=== PATIENT | male | born 1935 | race Hispanic/Latino ===

== ENCOUNTER 2016-07-01 12:34 | Outpatient (CLI) | payer BC, MEDICARE ==
[2016-07-01] MEDS ORDERED: NACL ONE (13:13)
--- NOTE | 2016-07-01 14:29 | Cat Scan Report ---
CTA CHEST INDICATION: Hypertension, shortness of breath. COMPARISON: None similar. FINDINGS: Chest CTA performed following intravenous administration of 100 cc of Omnipaque 350. Rotational MIP's also obtained. Top normal heart size. No pericardial effusion. Streak artifact from left upper anterior chest wall pacemaker and dual-chamber leads. Aortic and coronary atherosclerotic calcifications. No aortic aneurysm or dissection. No suspicious pulmonary arterial filling defects. No size significant adenopathy. Patent central airway. Normal thyroid. Mild underlying emphysematous changes, most involving the upper lobes with largest 2.1 cm peripheral right upper lobe bulla, axial image 59, series 2. Small bibasilar pleural effusions, right greater than left with maximum AP thickness of 1.9 cm, axial image 206. Mild underlying atelectasis. Slight right middle lobe and lingular atelectasis or scarring as well. Imaged upper abdomen demonstrates no acute solid organ abnormality. Questionable subtle hepatic cirrhotic changes and slight splenomegaly. Mild nonspecific bilateral perinephric stranding with right kidney possibly slightly atrophic. 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 CONCLUSION: 1. Small bibasilar pleural effusions and atelectasis without CT evidence of pulmonary embolism in this patient with underlying COPD. 2. Few other incidental findings, including subtle cirrhosis and slight splenomegaly questioned. Please correlate. Thank you for the opportunity to participate in this patient's care.
== END 2016-07-01 12:35 | disposition home or self-care (01) ==
LOC: CT 12:34
PROVIDERS: ATTEND Internal Medicine Cardiovascular Disease
DX: I10 Essential (primary) hypertension (principal); J90 Pleural effusion, not elsewhere classified; J98.11 Atelectasis; I70.0 Atherosclerosis of aorta; I25.10 Atherosclerotic heart disease of native coronary artery without angina pectoris; M25.78 Osteophyte, vertebrae; M47.894 Other spondylosis, thoracic region; K74.60 Unspecified cirrhosis of liver; Z95.0 Presence of cardiac pacemaker
CPT/HCPCS: 36415; 71275; 82565; 84520; Q9967

== ENCOUNTER 2016-09-30 05:54 | Day surgery (SDC) | payer BC, MEDICARE ==
[2016-09-30] MEDS ORDERED: NACL 0.9% 500 ML 500 ML IV SCH (07:00)
[2016-09-30 07:08] LABS: BUN/Creatinine Ratio 27.14; Calcium 9.9 mg/dL (8.4-10.2); Chloride 98.9 mmol/L (98-107); INR 1.23 (0.87-1.13); Potassium 5.4 mmol/L (3.6-5.0)
[2016-09-30] MEDS ORDERED: HEPARIN 10,000 UNITS/10 ML ONE (07:34)
[2016-09-30] MEDS ORDERED: HEPARIN/NS 5000 UNIT/500ML(CATH LAB) 1,000 ML IR ONE (07:34)
[2016-09-30] MEDS ORDERED: XYLOCAINE 2% INFILTRATI ONE (07:35)
[2016-09-30] MEDS ORDERED: VERSED ONE (07:35)
[2016-09-30] MEDS ORDERED: SUBLIMAZE ONE (07:35)
[2016-09-30] MEDS ORDERED: CALAN ONE (07:35)
[2016-09-30 07:36] LABS: Basophils % (Auto) 0.7 % (0.0-1.8); Eosinophils % (Auto) 3.1 % (0.0-4.3); Hematocrit 28.3 % (35.5-45.6); Hemoglobin 9.5 gm/dl (11.8-15.2); Mean Corpuscular HGB Conc 34 % (32-34); Mean Corpuscular Hemoglobin 33 pg (28-32); Mean Corpuscular Volume 97 fl (84-94); Platelet Count 143 K/mm3 (140-440); Red Blood Count 2.92 M/mm3 (3.65-5.03); White Blood Count 5.1 K/mm3 (4.5-11.0)
[2016-09-30] MEDS ORDERED: NITROGLYCERIN SYRINGE 3 ML ONE (07:36)
--- NOTE | 2016-09-30 11:16 | Discharge Summary ---
Short Stay Discharge Plan Diet: low fat, low cholesterol, low salt Special Instructions: no heavy lifting, other (POST CARDIAC CATH INSTRUCTIONS.) Follow up with: TREASURE DONG MD [Primary Care Provider] - 7 Days SHANNAN HOWARD MD [Staff Physician] - 7 Days
[2016-09-30 12:07] VITALS: BP 133/67
--- NOTE | 2016-10-07 07:14 | Cardiac Catherization Report ---
PROCEDURE: Left heart catheterization, ventriculography and coronary angiography of the right radial artery using 5-Guyanese catheters, including a pigtail, 3.5 left Kera and AR1. COMPLICATIONS: None. ESTIMATED BLOOD LOSS: 10-20 mL. TISSUE SAMPLES: None. SEDATION: Intravenous Versed and fentanyl. PREPROCEDURE DIAGNOSES: Chest pain and shortness of breath, suspicious for angina. POSTPROCEDURE DIAGNOSIS: Moderate coronary artery disease. HEMODYNAMICS: Central aortic pressure of 104/56. Left ventricular pressure 102/28. ANGIOGRAPHIC RESULTS: Left ventricle: Left ventriculogram reveals mild left ventricular enlargement with normal systolic function. An estimation of the ejection fraction is 55%. Right coronary artery: This is a dominant vessel and there is a 20% stenosis in mid portion. Left coronary artery: The left main contains a 30% stenosis. The circumflex contains a 50% mid stenosis. The first obtuse marginal branch contains a 50% stenosis. The mid LAD contains a 50% stenosis. The vessel is decreased to irregular and heavily calcified. The vessel is diffusely narrowed. FINAL IMPRESSION: Chest discomfort and shortness of breath suggest of angina. There is moderate coronary artery disease with normal left ventricular function. The vessels are diffusely narrowed and calcified. PLAN: Aggressive medical therapy, CAD risk factor modification, office followup within 7 days. Consider other organ systems for possible etiology of this patient's chest pain as well. JOB# [id number] NAT/NTS
== END 2016-09-30 12:30 | disposition home or self-care (01) ==
LOC: OPU 05:54
PROVIDERS: ATTEND Internal Medicine
DX: I25.10 Atherosclerotic heart disease of native coronary artery without angina pectoris (principal); E78.5 Hyperlipidemia, unspecified; D64.9 Anemia, unspecified; I10 Essential (primary) hypertension; Z88.0 Allergy status to penicillin; Z96.643 Presence of artificial hip joint, bilateral; Z79.899 Other long term (current) drug therapy; Z79.82 Long term (current) use of aspirin; Z87.39 Personal history of other diseases of the musculoskeletal system and connective tissue; Z98.890 Other specified postprocedural states; Z87.891 Personal history of nicotine dependence; Z82.49 Family history of ischemic heart disease and other diseases of the circulatory system; Z95.0 Presence of cardiac pacemaker
CPT/HCPCS: 36415; 80048; 85025; 85610; 85730; 93005; 93010; 93458; C1887; C1894; J1644; J2250; J3010; J7040; Q9967

== ENCOUNTER 2018-03-27 12:27 | Inpatient (IN) | payer BC, MEDICARE ==
[2018-03-27 13:38] LABS: Basophils # (Auto) 0.1 K/mm3 (0.0-0.1); Basophils % (Auto) 1.2 % (0.0-1.8); Eosinophils % (Auto) 0.6 % (0.0-4.3); Hematocrit 29.8 % (35.5-45.6); Hemoglobin 10.2 gm/dl (11.8-15.2); Lymphocytes % (Auto) 12.4 % (13.4-35.0); Mean Corpuscular HGB Conc 34 % (32-34); Mean Corpuscular Volume 102 fl (84-94); Monocytes # (Auto) 0.9 K/mm3 (0.0-0.8); Monocytes % (Auto) 11.2 % (0.0-7.3); Platelet Count 170 K/mm3 (140-440); Red Blood Count 2.93 M/mm3 (3.65-5.03)
--- NOTE | 2018-03-27 13:54 | XRay Report ---
ROUTINE CHEST, TWO VIEWS: HISTORY: Short of breath. A moderate to large right pleural effusion compresses the right middle and lower lobes. No left pleural effusion. The right upper lobe and left lung are well-aerated. Heart size and pulmonary vascularity are within normal limits. 2-lead pacemaker device is in position. IMPRESSION: Moderate to large right pleural effusion.
--- NOTE | 2018-03-27 14:02 | Emergency Department Report ---
ED Shortness of Breath HPI - General Chief Complaint: Dyspnea/Respdistress Stated Complaint: SOB Time Seen by Provider: 03/27/18 13:49 Source: patient Mode of arrival: Wheelchair Limitations: No Limitations - History of Present Illness Initial Comments: is an 83-year-old male who comes to the ER today with shortness of breath. He saw his family care doctor Dr. Patrick in [place] today and she sent him here to the hospital. Patient states that he has had this shortness of breath for 1-2 weeks has progressively been getting worse. It is worse with activity and when he is lying down. It is associated with some chest pain. He also has swelling of bilateral lower extremities right greater than left. Patient's lips are dusky with activity and sat is 86% when walking. Patient's heart rate is in the 60s. He is on Coreg. Patient also reports recent diarrhea. He states that it has gotten better. It started last week. He stat es that he had an x-ray of his abdomen done at his primary care's office. Patient is not febrile. Patient has chronic kidney disease with a baseline creatinine of 1.3. Patient does make urine and he states he urinates quite frequently. Patient has acute and chronic anemia. He received Procrit last week. 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 It is being medically managed by Dr. cao. His last EF in the EMR was 55% in 2017. 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 It is a [place] scientific device. She has a history of COPD/emphysema. He quit smoking in 1969. Patient is not on home oxygen. Other significant medical history includes hypertension, hyperlipidemia. Patient denies any history of cancer. Past surgical history is positive for 4 hip surgeries. He has also had a back surgery. Note that during one of patient's hip surgeries he had MRSA infections. Patient is compliant with his home medication regimen which includes Norvasc, aspirin, Coreg, Lasix, Prinivil, albuterol, trandolapril Complaint: shortness of breath, chest pain -: Gradual, week(s) (2) Severity: moderate Quality: dull Consistency: intermittent Improves With: rest, upright position Worsens With: lying flat, exertion Known History Of: COPD, congestive heart failure Associated Symptoms: chest pain, cough, orhopnia, lower abdominal swelling Treatments Prior to Arrival: none - Related Data Home Oxygen Therapy: No Home Medications Medication Instructions Recorded Confirmed Last Taken Amlodipine Besylate 5 mg PO QDAY 09/30/16 09/30/16 09/30/16 04:30 Aspirin [Adult Low Dose Aspirin EC] 81 mg PO QDAY 09/30/16 09/30/16 1 Week Ago ~09/23/16 Carvedilol 6.25 mg PO BID 09/30/16 09/30/16 09/30/16 04:30 Folic Acid [Folvite] 1 tab PO QDAY 09/30/16 09/30/16 09/29/16 Lovastatin Tab [Mevacor Tab] 40 mg PO HS 09/30/16 09/30/16 09/29/16 Multivit-Min/FA/Lycopen/Lutein 1 each PO QDAY 09/30/16 09/30/16 09/29/16 [Adults 50+ Multivitamin Tablet] [place]-3 Krill Oil 300 mg Sfgl 1 tab PO QDAY 09/30/16 09/30/16 09/29/16 Trandolapril 2 mg PO QDAY 09/30/16 09/30/16 09/30/16 04:30 Ubidecarenone [Coq-10] 300 mg PO QDAY 09/30/16 09/30/16 09/29/16 Vitamin B Complex [B Complex] 1 each PO DAILY 09/30/16 09/30/16 09/29/16 l-Arginine 1 cap PO QDAY 09/30/16 09/30/16 09/29/16 Allergies Allergy/AdvReac Type Severity Reaction Status Date / Time Penicillins Allergy Unknown Unknown Verified 09/30/16 06:20 ED Review of Systems ROS: Stated complaint: PNEUMONIA Other details as noted in HPI Comment: All other systems reviewed and negative Constitutional: denies: chills, fever Eyes: denies: eye pain ENT: denies: ear pain, throat pain Respiratory: see HPI, cough, orthopnea, shortness of breath, SOB with exertion, SOB at rest, wheezing (especially in a.m.) Cardiovascular: as per HPI, chest pain, dyspnea on exertion, orthopnea, edema (right worse than left), paroxysmal nocturnal dyspnea. denies: palpitations, syncope Endocrine: see HPI, unexplained weight gain. denies: excessive sweating, flushing, intolerance to cold, intolerance to heat Gastrointestinal: abdominal pain, diarrhea. denies: nausea (recent diarrhea), vomiting, constipation, hematemesis, melena, hematochezia Genitourinary: as per HPI, frequency (Lasix). denies: urgency, dysuria Musculoskeletal: denies: back pain Skin: denies: rash Neurological: denies: headache, weakness Psychiatric: denies: anxiety, depression Hematological/Lymphatic: denies: easy bleeding ED Past Medical Hx - Past Medical History Previous Medical History?: Yes Hx Hypertension: Yes (5yrs ago) Hx CVA: No Hx Heart Attack/AMI: Yes (stent) Hx Congestive Heart Failure: Yes (PPM TIFFANIE SCIENT) Hx Diabetes: No Hx Deep Vein Thrombosis: No Hx Pulmonary Embolism: No Hx GERD: No Hx Liver Disease: No Hx Renal Disease: Yes (ckd) Hx of Cancer: No Hx Sickle Cell Disease: No Hx Arthritis: No Hx Headaches / Migraines: No Hx Seizures: No Hx Kidney Stones: No Hx Psychiatric Treatment: No Hx Asthma: No Hx COPD: Yes (emphysema) Hx Tuberculosis: No Hx Dementia: No Hx HIV: No Additional medical history: a/c anemia - Surgical History Past Surgical History?: Yes Hx Coronary Stent: Yes (x1) Additional Surgical History: 4 hip surgeries. back surgery - Family History Family history: no significant - Social History Smoking Status: Former Smoker (quit 1970) Substance Use Type: None - Medications Home Medications: Home Medications Medication Instructions Recorded Confirmed Last Taken Type Amlodipine Besylate 5 mg PO QDAY 09/30/16 09/30/16 09/30/16 04:30 History Aspirin [Adult Low Dose Aspirin EC] 81 mg PO QDAY 09/30/16 09/30/16 1 Week Ago History ~09/23/16 Carvedilol 6.25 mg PO BID 09/30/16 09/30/16 09/30/16 04:30 History Folic Acid [Folvite] 1 tab PO QDAY 09/30/16 09/30/16 09/29/16 History Lovastatin Tab [Mevacor Tab] 40 mg PO HS 09/30/16 09/30/16 09/29/16 History Multivit-Min/FA/Lycopen/Lutein 1 each PO QDAY 09/30/16 09/30/16 09/29/16 History [Adults 50+ Multivitamin Tablet] [place]-3 Krill Oil 300 mg Sfgl 1 tab PO QDAY 09/30/16 09/30/16 09/29/16 History Trandolapril 2 mg PO QDAY 09/30/16 09/30/16 09/30/16 04:30 History Ubidecarenone [Coq-10] 300 mg PO QDAY 09/30/16 09/30/16 09/29/16 History Vitamin B Complex [B Complex] 1 each PO DAILY 09/30/16 09/30/16 09/29/16 History l-Arginine 1 cap PO QDAY 09/30/16 09/30/16 09/29/16 History ED Physical Exam - General Limitations: No Limitations General appearance: alert - Head Head exam: Present: atraumatic - Eye Eye exam: Present: PERRL, EOMI Pupils: Present: normal accommodation - ENT ENT exam: Present: mucous membranes moist - Neck Neck exam: Present: normal inspection - Respiratory Respiratory exam: Present: normal lung sounds bilaterally, rales, chest wall tenderness, other (INC WOB IRAJ W ACTIVITY; DIMINISHED RLL/RML). Absent: wheezes, rhonchi, stridor, accessory muscle use, decreased breath sounds, prolonged expiratory - Cardiovascular Cardiovascular Exam: Present: regular rate, normal rhythm, normal heart sounds, S3, S4, other (BLE EDEMA R> L) - GI/Abdominal GI/Abdominal exam: Present: soft, normal bowel sounds - Rectal Rectal exam: Present: deferred - Extremities Exam Extremities exam: Present: normal inspection - Back Exam Back exam: Present: normal inspection - Neurological Exam Neurological exam: Present: alert, oriented X3 - Psychiatric Psychiatric exam: Present: normal affect, normal mood - Skin Skin exam: Present: warm, dry, intact, other (DUSKY LIPS) ED Course Vital Signs 03/27/18 03/27/18 03/27/18 12:37 13:34 13:54 Temperature 98.9 F Pulse Rate 60 60 Respiratory 18 26 H 24 Rate Blood Pressure 119/48 Blood Pressure 138/89 [Left] O2 Sat by Pulse 92 86 94 Oximetry 03/27/18 13:55 Temperature Pulse Rate Respiratory 24 Rate Blood Pressure Blood Pressure [Left] O2 Sat by Pulse 94 Oximetry - Reevaluation(s) Reevaluation #1: 03/27/18 14:[address] MADRID FOR ADMISSION ED Medical Decision Making - Lab Data Result diagrams: 03/27/18 13:29 - EKG Data -: EKG Interpreted by Me - Radiology Data Radiology results: report reviewed, image reviewed R PLEURAL EFFUSION - Medical Decision Making RO ACS TROP P CATH 2017- TVD / EF 55 --MEDICAL MANAGEMENT COPD NO HOME O2 ABG P A/C HF LARGE R PLEURAL EFFUSION- DENIES WEIGHT LOSS; DENIES HISTORY CANCER BNP P A/C KD BASELINE CR 1.30 A/C ANEMIA PROCRIT LAST WEEK FOLLOWS WITH - [facility] PCP [facility] PULMONOLOGY GASTROENTEROLOGY UROLOGY HOME MEDS NORVASC ASA COREG TRANDOLAPRIL LASIX BREO ALBUTEROL PLAN 1. ABG PENDING 2. EKG PENDING 3. TROPONIN; AND ADDITIONAL LABS PENDING 4 XRAY NOTED WITH LARGE R PL EFFUSION- WILL NEED DIURESIS 5. REPORT TO DR MADRID FOR ADMISSION - Differential Diagnosis RO ACS; ACUTE DECOMPENSATED HR; COPD AE Critical Care Time: Yes Critical care time in (mins) excluding proc time.: 30 Critical care attestation.: If time is entered above; I have spent that time in minutes in the direct care of this critically ill patient, excluding procedure time. ED Disposition Clinical Impression: Pleural effusion Disposition: DC-[id number] OP ADMIT IP TO THIS HOSP Is pt being admited?: Yes Does the pt Need Aspirin: No Condition: Stable Referrals: PRIMARY CARE, [Primary Care Provider] - 3-5 Days Time of Disposition: 14:13
[2018-03-27] MEDS ORDERED: BABY ASPIRIN PO ONE (14:14)
[2018-03-27 14:54] LABS: BUN/Creatinine Ratio 15; Blood Urea Nitrogen 17 mg/dL (9-20); Calcium 9.2 mg/dL (8.4-10.2); Hemolysis Index 13
[2018-03-27 14:56] LABS: Albumin 3.5 g/dL (3.9-5); Bilirubin,Direct 0.3 mg/dL (0-0.2)
--- NOTE | 2018-03-27 16:34 | History and Physical Report ---
History of Present Illness Chief complaint: I feel weak, and I cant breathe History of present illness: 83 YO Male with HTN, CHF, COPD, PA, CAD S/P Stent Placement, Anemia presents to ED for evaluation. Pt states that he has experienced shortness of breath and chest discomfort over the past 2 weeks, with worsening symptoms over the past 3 days. Pt acknowledges Orthopnea/PND, Dypsnea on exertion, Decreased exercise t olerance, and lower extremity edema. Pt denies medication noncompliance. Pt was seen and evaluated by his PCP and was instructed to seek further care. Pt transported to [facility] for further care and evaluation. Pt seen and evaluated in ED and found to have CHF Decompensation, Acute Hypoxemic Respiratory Failure, as well as Pleural Effusion. Pt denies fever, chills, CP, Palpitations, NVD, Trauma, Skin Rash, BRBPR, Productive cough, or recent ill contacts. Pt admitted to telemetry. Cardiology consulted in ED, Pulmonary consulted in ED. IR consulted for therapeutic thoracentesis. Past History Past Medical History: acute PA, CAD, COPD, heart failure Past Surgical History: total hip replacement, Other (Cardiac stent placement') Social history: , lives with family. denies: smoking, alcohol abuse, pre scription drug abuse Family history: no significant family history (reviewed) Medications and Allergies Allergies Allergy/AdvReac Type Severity Reaction Status Date / Time Penicillins Allergy Unknown Unknown Verified 09/30/16 06:20 Home Medications Medication Instructions Recorded Confirmed Last Taken Type Amlodipine Besylate 5 mg PO QDAY 09/30/16 03/27/18 09/30/16 04:30 History Aspirin [Adult Low Dose Aspirin EC] 81 mg PO QDAY 09/30/16 03/27/18 1 Week Ago History ~09/23/16 Carvedilol 6.25 mg PO BID 09/30/16 03/27/18 09/30/16 04:30 History Lovastatin Tab [Mevacor Tab] 40 mg PO HS 09/30/16 03/27/18 09/29/16 History Trandolapril 2 mg PO QDAY 09/30/16 03/27/18 09/30/16 04:30 History Fluticasone/Vilanterol [Breo 1 each IH PRN 03/27/18 03/27/18 Unknown History Ellipta 100-25 Mcg INH] Review of Systems Constitutional: no weight loss, no weight gain, no fever, no chills Ears, nose, mouth and throat: no ear pain, no ear discharge, no tinnitis, no decreased hearing, no nose pain, no nasal congestion Cardiovascular: orthopnea, shortness of breath, dyspnea on exertion, paroxysmal nocturnal dyspnea, leg edema, decreased exercise tolerance, no chest pain, no palpitations, no rapid/irregular heart beat Respiratory: no cough, no cough with sputum, no excessive sputum Gastrointestinal: no abdominal pain, no nausea, no vomiting, no diarrhea, no constipation Genitourinary Male: no hematuria, no flank pain, no discharge, no urinary frequency, no urinary hesitancy Rectal: no pain, no incontinence, no bleeding Musculoskeletal: no neck stiffness, no neck pain, no shooting arm pain, no arm numbness/tingling, no low back pain, no shooting leg pain Integumentary: no rash, no pruritis, no redness, no sores, no wounds Neurological: no head injury, no transient paralysis, no paralysis, no weakness, no parathesias, no numbness, no tingling Psychiatric: no anxiety, no memory loss, no change in sleep habits, no sleep disturbances, no insomnia, no hypersomnia Endocrine: no cold intolerance, no heat intolerance, no excessive sweating Hematologic/Lymphatic: no easy bruising, no easy bleeding, no lymphadenopathy, no lymphedema Allergic/Immunologic: no urticaria, no allergic rhinitis, no wheezing, no persistent infections, no anaphylaxis, no angioedema Exam - Constitutional Vitals: Temp Pulse Resp BP Pulse Ox 98.9 F 60 24 138/89 94 03/27/18 12:37 03/27/18 13:54 03/27/18 13:55 03/27/18 13:54 03/27/18 13:55 General appearance: Present: mild distress - EENT Eyes: Present: PERRL ENT: hearing intact, clear oral mucosa - Neck Neck: Present: supple, normal ROM - Respiratory Respiratory effort: labored Respiratory: bilateral: diminished, rhonchi - Cardiovascular Heart Sounds: Present: S1 & S2. Absent: rub, click - Extremities Extremities: pulses symmetrical, No edema Extremity abnormal: edema Peripheral Pulses: within normal limits - Abdominal General gastrointestinal: Present: soft, non-tender, non-distended, normal bowel sounds Male genitourinary: Present: normal - Integumentary Integumentary: Present: clear, warm, dry - Musculoskeletal Musculoskeletal: generalized weakness - Psychiatric Psychiatric: appropriate mood/affect, intact judgment & insight - Neurologic Neurologic: CNII-XII intact, moves all extremities Results - Labs CBC & Chem 7: 03/27/18 13:29 03/27/18 13:29 Labs: Abnormal lab results 03/27/18 03/27/18 03/27/18 Range/Units 13:29 13: 13:29 RBC 2.93 L (3.65-5.03) M/mm3 Hgb 10.2 L (11.8-15.2) gm/dl Hct 29.8 L (35.5-45.6) % MCV 102 H (84-94) fl MCH 35 H (28-32) pg RDW 17.0 H (13.2-15.2) % Lymph % (Auto) 12.4 L (13.4-35.0) % [place] % (Auto) 11.2 H (0.0-7.3) % Lymph # 1.0 L (1.2-5.4) K/mm3 [place] # 0.9 H (0.0-0.8) K/mm3 Seg Neutrophils % 74.6 H (40.0-70.0) % POC ABG pH (7.35-7.45) POC ABG pCO2 (35-45) POC ABG pO2 (80-105) Carbon Dioxide 20 L (22-30) mmol/L Glucose 109 H (75-100) mg/dL Direct Bilirubin 0.3 H (0-0.2) mg/dL Alkaline Phosphatase 140 H (35-129) units/L NT-Pro-B Natriuret Pep (0-900) pg/mL Albumin 3.5 L (3.9-5) g/dL 03/27/18 03/27/18 Range/Units 13:29 15:11 RBC (3.65-5.03) M/mm3 Hgb (11.8-15.2) gm/dl Hct (35.5-45.6) % MCV (84-94) fl MCH (28-32) pg RDW (13.2-15.2) % Lymph % (Auto) (13.4-35.0) % [place] % (Auto) (0.0-7.3) % Lymph # (1.2-5.4) K/mm3 [place] # (0.0-0.8) K/mm3 Seg Neutrophils % (40.0-70.0) % POC ABG pH 7.455 H (7.35-7.45) POC ABG pCO2 31.3 L (35-45) POC ABG pO2 57 L (80-105) Carbon Dioxide (22-30) mmol/L Glucose (75-100) mg/dL Direct Bilirubin (0-0.2) mg/dL Alkaline Phosphatase (35-129) units/L NT-Pro-B Natriuret Pep 5803 H (0-900) pg/mL Albumin (3.9-5) g/dL Assessment and Plan - Patient Problems (1) CHF (congestive heart failure) Current Visit: Yes Status: Acute Qualifiers: Heart failure type: systolic Heart failure chronicity: acute on chronic Qualified Code(s): I50.23 - Acute on chronic systolic (congestive) heart failure Plan to address problem: Admit to telemetry, Chest x ray, CTA chest, strict I/O, daily weight, monitor uop q shift, cardiology consulted in ED, Echo, BNP, diuresis, pulse oximetry,thyroid panel (2) Respiratory failure Current Visit: Yes Status: Acute Qualifiers: Chronicity: acute Respiratory failure complication: hypoxia Qualified Code(s): J96.01 - Acute respiratory failure with hypoxia Plan to address problem: Supplemental oxygen, nebulizer therapy, ABG, NIPPV as clinically indicated, pulse oximetry, chest x ray, CTA chest, (3) Pleural effusion Current Visit: Yes Status: Acute Plan to address problem: IR consulted, for therapeutic thoracentesis (4) DVT prophylaxis Current Visit: Yes Status: Acute Plan to address problem: SCD to BLE while in bed.
[2018-03-27] MEDS ORDERED: PROVENTIL IH PRN (16:36)
[2018-03-27] MEDS ORDERED: MORPHINE IV PRN (16:36)
[2018-03-27] MEDS ORDERED: SODIUM CHLORIDE FLUSH SYRINGE 10 ML IV PRN (16:36)
[2018-03-27] MEDS ORDERED: ZOFRAN IV PRN (16:36)
[2018-03-27] MEDS ORDERED: TYLENOL PO PRN (16:36)
--- NOTE | 2018-03-27 20:33 | Cat Scan Report ---
FINAL REPORT PROCEDURE: CT ANGIO CHEST TECHNIQUE: Computerized tomographic angiography of the chest was performed after the IV injection of iodinated nonionic contrast including image processing. The image data was postprocessed using 2-dim ensional multiplanar reformatted (MPR) and 3-dimensional (MIP and/or volume rendered) techniques. HISTORY: pleural effusion COMPARISON: No prior studies are available for comparison. FINDINGS: A large right pleural effusion and minimal degree left pleural effusion are noted. There is associate d complete collapse of the right lower lobe and partial atelectasis of right upper and middle lobes. Mild degree centrilobular emphysematous changes are noted with a few paraseptal bullae in the right u pper lobe. Bilateral pulmonary arteries and their branches demonstrate normal opacification without f illing defects. Hilar structures are within normal limits. Multiple nonenlarged mediastinal lymph nod es are identified. In addition there is a 2.8 x 1.6 centimeter upper right paratracheal lymph node. T hyroid demonstrates normal size and density. There is mild cardiomegaly. Aorta is of normal caliber. Visualized upper abdominal structures are within normal limits. 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 IMPRESSION: No evidence of pulmonary embolism Mild cardiomegaly Right paratracheal lymphadenopathy Severe degree right-sided and minimal degree left-sided pleural effusions. Emphysema
[2018-03-27 20:53] LABS: Free T4 (Free Thyroxine) 1.27 ng/dL (0.76-1.46)
[2018-03-27] MEDS ORDERED: LOVASTATIN 40 MG PO SCH (22:00)
[2018-03-27] MEDS: COREG PO SCH (22:58)
[2018-03-27] MEDS: PRAVACHOL PO SCH (22:58)
[2018-03-27] MEDS: SODIUM CHLORIDE FLUSH SYRINGE 10 ML IV SCH (22:59)
[2018-03-28 07:03] LABS: Hematocrit 28.5 % (35.5-45.6); Hemoglobin 9.8 gm/dl (11.8-15.2); Mean Corpuscular HGB Conc 34 % (32-34); Mean Corpuscular Volume 102 fl (84-94); Platelet Count 144 K/mm3 (140-440); Red Blood Count 2.81 M/mm3 (3.65-5.03); Red Cell Distribution Width 17.2 % (13.2-15.2)
[2018-03-28 07:25] LABS: BUN/Creatinine Ratio 18; Blood Urea Nitrogen 18 mg/dL (9-20); Calcium 8.7 mg/dL (8.4-10.2); Hemolysis Index 0
[2018-03-28 07:29] LABS: Alanine Aminotransferase 23 units/L (7-56); Albumin 3.3 g/dL (3.9-5); BUN/Creatinine Ratio 15; Blood Urea Nitrogen 17 mg/dL (9-20); Calcium 8.7 mg/dL (8.4-10.2); Hemolysis Index 3
--- NOTE | 2018-03-28 08:02 | Consultation ---
History of Present Illness Consult date: 03/28/18 Requesting physician: KEMAR PICHARDO Reason for consult: pleural effusion History of present illness: 83 y/o male with history of CAD, has implanted Device seen on CXR, admitted with worsening shortness of breath. CXr reveals large right sided pleural effusion. CTA also done which shows bilateral pleural effusions, very small effusion on left and some emphysematous changes seen throughout. Pulmonary consulted seco ndary to pleural effusion seen on CXR. Patient has seen my partner Dr. Brady in the past. His effusion is chronic but has increased in size recently. Several times Dr. Brady has offered to tap patient via radiology but patient has refused. Past History Past Medical History: acute MS, CAD, COPD, heart failure Past Surgical History: total hip replacement, Other (Cardiac stent placement') Social history: , lives with family. denies: smoking, alcohol abuse, prescription drug abuse Family history: no significant family history (reviewed) Medications and Allergies Allergies Allergy/AdvReac Type Severity Reaction Status Date / Time Penicillins Allergy Unknown Unknown Verified 09/30/16 06:20 Home Medications Medication Instructions Recorded Confirmed Last Taken Type Amlodipine Besylate 5 mg PO QDAY 09/30/16 03/27/18 09/30/16 04:30 History Aspirin [Adult Low Dose Aspirin EC] 81 mg PO QDAY 09/30/16 03/27/18 1 Week Ago History ~09/23/16 Carvedilol 6.25 mg PO BID 09/30/16 03/27/18 09/30/16 04:30 History Lovastatin Tab [Mevacor Tab] 40 mg PO HS 09/30/16 03/27/18 09/29/16 History Trandolapril 2 mg PO QDAY 09/30/16 03/27/18 09/30/16 04:30 History Fluticasone/Vilanterol [Breo 1 each IH PRN 03/27/18 03/27/18 Unknown History Ellipta 100-25 Mcg INH] Active Meds: Active Medications Acetaminophen (Tylenol) 650 mg PO Q4H PRN PRN Reason: Pain MILD(1-3)/Fever >100.5/HOWARD Albuterol (Proventil) 2.5 mg IH Q4HRT PRN PRN Reason: Shortness Of Breath Amlodipine Besylate (Norvasc) 5 mg PO QDAY [facility]IGEL Carvedilol (Coreg) 6.25 mg PO BID [facility] Last Admin: 03/27/18 22:58 Dose: 6.25 mg Documented by: Folic Acid (Folvite) 1 mg PO QDAY [facility] Furosemide (Lasix) 20 mg IV QDAY [facility] Miscellaneous Medication ([place]-3 Krill Oil 300 Mg Sfgl) 1 tab PO QDAY [facility] Miscellaneous Medication (Trandolapril [Trandolapril]) 2 mg PO QDAY [facility] Miscellaneous Medication (Ubidecarenone [Coq-10]) 300 mg PO QDAY [facility] Morphine Sulfate (Morphine) 2 mg IV Q4H PRN PRN Reason: Pain, Moderate (4-6) Multivitamins/Minerals (Theragran-M Tab) 1 each PO QDAY [facility] Ondansetron HCl (Zofran) 4 mg IV Q8H PRN PRN Reason: Nausea And Vomiting Pravastatin Sodium (Pravachol) 40 mg PO QHS [facility] Last Admin: 03/27/18 22:58 Dose: 40 mg Documented by: Sodium Chloride (Sodium Chloride Flush Syringe 10 Ml) 10 ml IV BID [facility] Last Admin: 03/27/18 22:59 Dose: 10 ml Documented by: Sodium Chloride (Sodium Chloride Flush Syringe 10 Ml) 10 ml IV PRN PRN PRN Reason: LINE FLUSH Vitamin B Complex/Vitamin C ([place]bee With C) 1 each PO DAILY [facility] Review of Systems All systems: negative Physical Examination Vital signs: Vital Signs Temp Pulse Resp BP Pulse Ox 98.9 F 60 18 119/48 92 03/27/18 12:37 03/27/18 12:37 03/27/18 12:37 03/27/18 12:37 03/27/18 12:37 General appearance: alert, appears uncomfortable Eyes: non-icteric ENT: oropharynx moist Neck: supple Ascultation: Right: diminished breath sounds (above the upper mid back zone), Bilateral: rales Percussion: Right: dull Tactile fremitus: Right: diminished Extremities: edema Results - Laboratory Findings CBC and BMP: 03/28/18 06:26 03/28/18 06:26 ABG POC ABG pH 7.455 (7.35-7.45) H 03/27/18 15:11 POC ABG pCO2 31.3 (35-45) L 03/27/18 15:11 POC ABG pO2 57 (80-105) L 03/27/18 15:11 POC ABG HCO3 22.0 03/27/18 15:11 POC ABG Total CO2 23 03/27/18 15:11 POC ABG O2 Sat 91 03/27/18 15:11 Abnormal lab findings: Abnormal Labs 03/27/18 03/27/18 03/27/18 13:29 13:29 13:29 RBC 2.93 L Hgb 10.2 L Hct 29.8 L MCV 102 H MCH 35 H RDW 17.0 H Lymph % (Auto) 12.4 L George % (Auto) 11.2 H Lymph # 1.0 L George # 0.9 H Seg Neutrophils % 74.6 H POC ABG pH POC ABG pCO2 POC ABG pO2 Carbon Dioxide 20 L Glucose 109 H Direct Bilirubin 0.3 H Alkaline Phosphatase 140 H NT-Pro-B Natriuret Pep Total Protein Albumin 3.5 L TSH 03/27/18 03/27/18 03/27/18 13:29 15:11 20:16 RBC Hgb Hct MCV MCH RDW Lymph % (Auto) George % (Auto) Lymph # George # Seg Neutrophils % POC ABG pH 7.455 H POC ABG pCO2 31.3 L POC ABG pO2 57 L Carbon Dioxide Glucose Direct Bilirubin Alkaline Phosphatase NT-Pro-B Natriuret Pep 5803 H Total Protein Albumin TSH 7.370 H 03/28/18 03/28/18 06:26 06:26 RBC 2.81 L Hgb 9.8 L Hct 28.5 L MCV 102 H MCH 35 H RDW 17.2 H Lymph % (Auto) George % (Auto) Lymph # George # Seg Neutrophils % POC ABG pH POC ABG pCO2 POC ABG pO2 Carbon Dioxide Glucose 102 H Direct Bilirubin Alkaline Phosphatase NT-Pro-B Natriuret Pep Total Protein 5.8 L Albumin 3.3 L TSH - Diagnostic Findings Chest x-ray: image reviewed (large right sided pleural effusion) CT scan - chest: image reviewed (bilateral pleural effusions right>>>>>left) Assessment and Plan 83 y/o male with bilateral pleural effusions, right >>>left admitted with worsen ing dyspnea on exertion and hypoxemia. 1. Agree with diuresis 2. Also agree with thoracentesis. Labs not ordered for fluid but will place now. Will send fluid for Cell Count with Diff, Protein, LDH, glucose, gram stain and culture, afb and fungal and cytology given age. 3. Patient also needs serum LDH and serum protein sent today as well 4. Suggest repeat echo to evaluate right sided pressures but would obtain thora first. Thank you for this consult, will continue to follow along with you
[2018-03-28] MEDS: NORVASC PO SCH (10:00)
[2018-03-28] MEDS: COREG PO SCH ×2 (10:00→22:45)
[2018-03-28] MEDS ORDERED: TRANDOLAPRIL 2 MG PO SCH (10:00)
[2018-03-28] MEDS: FOLVITE PO SCH (10:00)
[2018-03-28] MEDS: THERAGRAN-M Tab PO SCH (10:00)
[2018-03-28] MEDS ORDERED: OMEGA 3 KRILL OIL PO SCH (10:00)
[2018-03-28] MEDS ORDERED: UBIDECARENONE 300 MG PO SCH (10:00)
[2018-03-28] MEDS: ALLBEE WITH C PO SCH (10:00)
--- NOTE | 2018-03-28 11:01 | Consultation ---
Addendum entered and electronically signed by FEDERICO URIOSTEGUI MD 03/28/18 13:35: 83-year-old man who presented to the hospital with symptoms of shortness of ana th, a chest x-ray reveals a large unilateral right pleural effusion. Otherwise, no effusion on the left, no other signs of interstitial edema or heart failure. The patient has a history of hypertension, in situ dual-chamber cardiac pacemaker, and nonobstructive coronary artery disease and a cardiac catheterization a year and a half ago. Serial left ventricle systolic function assessment, was normal at 55% on left ventricular angiography a year and a half ago, and 50% on echocardiogram just 4 months ago. EKG is atrial ventricular dual-chamber pacemaker rhythm. Recommendations: The patient's present in unilateral right pleural effusion is likely a pulmonary etiology, will defer to pulmonary for further workup included diagnostic thoracentesis. There is no clinical or radiologic evidence of heart failure, no further cardiac workup is indicated. Original Note: History of Present Illness Consult date: 03/28/18 Consult reason: congestive heart failure History of present illness: This is a 83 year old male with a history of non-obstructive coronary artery disease, ejection fraction 55% by cardiac cath in 2017 recommended for medical therapy. An echocardiogram 4 months ago reports a normal left ventricular systolic function, ejection fraction 50%. He has a history of complete heart block and has an permanent pacemaker insitu. Co-morbidities includes Emphysema, Hypertension, chronic Anemia and bilateral lower extremity venous insufficiency. Patient was sent to this hospital from his pcp office for suspected pneumonia. Patient reports shortness of breath, coughs and congestion ongoing for several days. Patient remains afebrile and has a normal WBC. A chest x-ray done on initial workup reports a moderate to large right pleural effusion. In addition, he had a chest CTA done which reports bilateral pleural effusions, right greater than the left and emphysematous changes. No evidence of pulmonary embolus. Past History Past Surgical History: total hip replacement, Other (Cardiac stent placement') Social history: , lives with family. denies: smoking, alcohol abuse, pre scription drug abuse Family history: no significant family history (reviewed) Medications and Allergies Allergies Allergy/AdvReac Type Severity Reaction Status Date / Time Penicillins Allergy Unknown Unknown Verified 09/30/16 06:20 Home Medications Medication Instructions Recorded Confirmed Last Taken Type Amlodipine Besylate 5 mg PO QDAY 09/30/16 03/27/18 09/30/16 04:30 History Aspirin [Adult Low Dose Aspirin EC] 81 mg PO QDAY 09/30/16 03/27/18 1 Week Ago History ~09/23/16 Carvedilol 6.25 mg PO BID 09/30/16 03/27/18 09/30/16 04:30 History Lovastatin Tab [Mevacor Tab] 40 mg PO HS 09/30/16 03/27/18 09/29/16 History Trandolapril 2 mg PO QDAY 09/30/16 03/27/18 09/30/16 04:30 History Fluticasone/Vilanterol [Breo 1 each IH PRN 03/27/18 03/27/18 Unknown History Ellipta 100-25 Mcg INH] Active Meds: Active Medications Acetaminophen (Tylenol) 650 mg PO Q4H PRN PRN Reason: Pain MILD(1-3)/Fever >100.5/HOWARD Albuterol (Proventil) 2.5 mg IH Q4HRT PRN PRN Reason: Shortness Of Breath Amlodipine Besylate (Norvasc) 5 mg PO QDAY REPLACED BY [facility] Carvedilol (Coreg) 6.25 mg PO BID REPLACED BY [facility] Last Admin: 03/27/18 22:58 Dose: 6.25 mg Documented by: Folic Acid (Folvite) 1 mg PO QDAY REPLACED BY [facility] Furosemide (Lasix) 20 mg IV QDAY REPLACED BY [facility] Miscellaneous Medication ([place]-3 Krill Oil 300 Mg Sfgl) 1 tab PO QDAY REPLACED BY [facility] Miscellaneous Medication (Trandolapril [Trandolapril]) 2 mg PO QDAY REPLACED BY [facility] Miscellaneous Medication (Ubidecarenone [Coq-10]) 300 mg PO QDAY REPLACED BY [facility] Morphine Sulfate (Morphine) 2 mg IV Q4H PRN PRN Reason: Pain, Moderate (4-6) Multivitamins/Minerals (Theragran-M Tab) 1 each PO QDAY REPLACED BY [facility] Ondansetron HCl (Zofran) 4 mg IV Q8H PRN PRN Reason: Nausea And Vomiting Pravastatin Sodium (Pravachol) 40 mg PO QHS REPLACED BY [facility] Last Admin: 03/27/18 22:58 Dose: 40 mg Documented by: Sodium Chloride (Sodium Chloride Flush Syringe 10 Ml) 10 ml IV BID REPLACED BY [facility] Last Admin: 03/27/18 22:59 Dose: 10 ml Documented by: Sodium Chloride (Sodium Chloride Flush Syringe 10 Ml) 10 ml IV PRN PRN PRN Reason: LINE FLUSH Vitamin B Complex/Vitamin C (Allbee With C) 1 each PO DAILY [facility] Physical Examination Vital Signs Temp Pulse Resp BP Pulse Ox 98.9 F 60 18 119/48 92 03/27/18 12:37 03/27/18 12:37 03/27/18 12:37 03/27/18 12:37 03/27/18 12:37 Results 03/28/18 06:26 03/28/18 06:26 Cardiac Enzymes 03/27/18 03/28/18 03/28/18 Range/Units 13:29 06:26 06:26 AST 36 29 (5-40) units/L Lactate Dehydrogenase 197 H (91-180) units/L CBC 03/27/18 03/28/18 Range/Units 13:29 06:26 WBC 8.3 5.6 (4.5-11.0) K/mm3 RBC 2.93 L 2.81 L (3.65-5.03) M/mm3 Hgb 10.2 L 9.8 L (11.8-15.2) gm/dl Hct 29.8 L 28.5 L (35.5-45.6) % Plt Count 170 144 (140-440) K/mm3 Lymph # 1.0 L (1.2-5.4) K/mm3 [place] # 0.9 H (0.0-0.8) K/mm3 Eos # 0.0 (0.0-0.4) K/mm3 Baso # 0.1 (0.0-0.1) K/mm3 Comprehensive Metabolic Panel 03/27/18 03/27/18 03/28/18 Range/Units 13:29 13:29 04:30 Sodium 138 137 (137-145) mmol/L Potassium 4.4 4.2 (3.6-5.0) mmol/L Chloride 101.0 100.4 (98-107) mmol/L Carbon Dioxide 20 L 24 (22-30) mmol/L BUN 17 18 (9-20) mg/dL Creatinine 1.1 1.0 (0.8-1.5) mg/dL Glucose 109 H 100 (75-100) mg/dL Calcium 9.2 8.7 (8.4-10.2) mg/dL Direct Bilirubin 0.3 H (0-0.2) mg/dL Indirect Bilirubin 0.3 mg/dL AST 36 (5-40) units/L ALT 26 (7-56) units/L Alkaline Phosphatase 140 H (35-129) units/L Total Protein 6.5 (6.3-8.2) g/dL Albumin 3.5 L (3.9-5) g/dL 03/28/18 Range/Units 06:26 Sodium 137 (137-145) mmol/L Potassium 4.3 (3.6-5.0) mmol/L Chloride 101.5 (98-107) mmol/L Carbon Dioxide 25 (22-30) mmol/L BUN 17 (9-20) mg/dL Creatinine 1.1 (0.8-1.5) mg/dL Glucose 102 H (75-100) mg/dL Calcium 8.7 (8.4-10.2) mg/dL Direct Bilirubin (0-0.2) mg/dL Indirect Bilirubin mg/dL AST 29 (5-40) units/L ALT 23 (7-56) units/L Alkaline Phosphatase 126 (35-129) units/L Total Protein 5.8 L (6.3-8.2) g/dL Albumin 3.3 L (3.9-5) g/dL Assessment and Plan Pleural effusion, right greater than the left Hx of Emphysema Presence of PPM Hypertension Anemia, chronic
--- NOTE | 2018-03-28 12:05 | Progress Note ---
Assessment and Plan Assessment and plan: 83-year-old man with HTN, CHF EF 55%, sp PPM, COPD, MT, CAD S/P Stent Placement, Anemia who presents with shortness of breath and chest discomfort 2 weeks, acknowledges orthopnea, PND, GOVEA, decreased exercise tolerance and bipedal edema he went to his PCP who sent him to the ER Problems Acute on chronic diatolic CHF Bilateral pleural effusion, right larger than left Acute hypoxic respiratory failure Plan -Right thoracentesis ordered by pulmonology, send fluid for evaluation -IV diuresis, cardiology consult -Supplemental oxygen as needed DVT prophylaxis chemical History Interval history: Complaining of shortness of breath, orthopnea, PND, pedal edema No fever no chills No nausea or vomiting No wheezing Hospitalist Physical - Physical exam Narrative exam: General.: Mild distress HEENT: Moist mucous membranes, extraocular muscles intact, no lymphadenopathy Neck: supple Cardiac: S1-S2 heard Lungs: Dullness to lower right lung, left base crackles Abdomen: soft , nontender, nondistended, bowel sounds positive Extremities: Bipedal edema Skin: no rash or lesions Neurologic: no gross focal deficits Psych: calm, and cooperative - Constitutional Vitals: Temp Pulse Resp BP Pulse Ox 97.9 F 68 18 137/57 91 03/28/18 07:42 03/28/18 07:42 03/28/18 07:42 03/28/18 07:42 03/28/18 09:30 General appearance: Present: mild distress Results - Labs CBC & Chem 7: 03/28/18 06:26 03/28/18 06:26 Labs: Laboratory Last Values WBC 5.6 K/mm3 (4.5-11.0) 03/28/18 06:26 RBC 2.81 M/mm3 (3.65-5.03) L 03/28/18 06:26 Hgb 9.8 gm/dl (11.8-15.2) L 03/28/18 06:26 Hct 28.5 % (35.5-45.6) L 03/28/18 06:26 MCV 102 fl (84-94) H 03/28/18 06:26 MCH 35 pg (28-32) H 03/28/18 06:26 MCHC 34 % (32-34) 03/28/18 06:26 RDW 17.2 % (13.2-15.2) H 03/28/18 06:26 Plt Count 144 K/mm3 (140-440) 03/28/18 06:26 Lymph % (Auto) 12.4 % (13.4-35.0) L 03/27/18 13:29 [place] % (Auto) 11.2 % (0.0-7.3) H 03/27/18 13:29 Eos % (Auto) 0.6 % (0.0-4.3) 03/27/18 13:29 Baso % (Auto) 1.2 % (0.0-1.8) 03/27/18 13:29 Lymph # 1.0 K/mm3 (1.2-5.4) L 03/27/18 13:29 [place] # 0.9 K/mm3 (0.0-0.8) H 03/27/18 13:29 Eos # 0.0 K/mm3 (0.0-0.4) 03/27/18 13:29 Baso # 0.1 K/mm3 (0.0-0.1) 03/27/18 13:29 Seg Neutrophils % 74.6 % (40.0-70.0) H 03/27/18 13:29 Seg Neutrophils # 6.2 K/mm3 (1.8-7.7) 03/27/18 13:29 POC ABG pH 7.455 (7.35-7.45) H 03/27/18 15:11 POC ABG pCO2 31.3 (35-45) L 03/27/18 15:11 POC ABG pO2 57 (80-105) L 03/27/18 15:11 POC ABG HCO3 22.0 03/27/18 15:11 POC ABG Total CO2 23 03/27/18 15:11 POC ABG O2 Sat 91 03/27/18 15:11 POC ABG Base Excess -2 03/27/18 15:11 FiO2 32 % 03/27/18 15:11 Sodium 137 mmol/L (137-145) 03/28/18 06:26 Potassium 4.3 mmol/L (3.6-5.0) 03/28/18 06:26 Chloride 101.5 mmol/L (98-107) 03/28/18 06:26 Carbon Dioxide 25 mmol/L (22-30) 03/28/18 06:26 Anion Gap 15 mmol/L 03/28/18 06:26 BUN 17 mg/dL (9-20) 03/28/18 06:26 Creatinine 1.1 mg/dL (0.8-1.5) 03/28/18 06:26 Estimated GFR > 60 ml/min 03/28/18 06:26 BUN/Creatinine Ratio 15 % 03/28/18 06:26 Glucose 102 mg/dL (75-100) H 03/28/18 06:26 Calcium 8.7 mg/dL (8.4-10.2) 03/28/18 06:26 Total Bilirubin 0.50 mg/dL (0.1-1.2) 03/28/18 06:26 Direct Bilirubin 0.3 mg/dL (0-0.2) H 03/27/18 13:29 Indirect Bilirubin 0.3 mg/dL 03/27/18 13:29 AST 29 units/L (5-40) 03/28/18 06:26 ALT 23 units/L (7-56) 03/28/18 06:26 Alkaline Phosphatase 126 units/L (35-129) 03/28/18 06:26 Lactate Dehydrogenase 197 units/L (91-180) H 03/28/18 06:26 Troponin T 0.015 ng/mL (0.00-0.029) 03/27/18 13:29 NT-Pro-B Natriuret Pep 5803 pg/mL (0-900) H 03/27/18 13:29 Total Protein 5.8 g/dL (6.3-8.2) L 03/28/18 06:26 Albumin 3.3 g/dL (3.9-5) L 03/28/18 06:26 Albumin/Globulin Ratio 1.3 % 03/28/18 06:26 TSH 7.370 mlU/mL (0.270-4.200) H 03/27/18 20:16 Free T4 1.27 ng/dL (0.76-1.46) 03/27/18 20:16
[2018-03-28 13:15] LABS: INR 1.2 (0.87-1.13)
[2018-03-28] MEDS: ZESTRIL PO SCH (14:16)
[2018-03-28] MEDS: LASIX IV SCH (14:16)
[2018-03-28] MEDS ORDERED: XYLOCAINE 1% 20 mL ONE (15:44)
--- NOTE | 2018-03-28 16:04 | Procedure Note ---
Date of procedure: 03/28/18 Pre-op diagnosis: right pleural effusion Post-op diagnosis: same Procedure: US thoracentesis Findings: large right pleural effusion Anesthesia: local Surgeon: FAN JHAVERI Estimated blood loss: none Pathology: list (120cc) Specimen disposition: to lab Condition: stable Disposition: floor
[2018-03-28 18:05] LABS: Total Cells Counted 100 /mm3
--- NOTE | 2018-03-28 18:30 | XRay Report ---
FINAL REPORT EXAM: XR CHEST 1V AP HISTORY: SOB, recent right thoracentesis TECHNIQUE: Frontal portable view of the chest Comparison: Chest CT dated March 27, 2018 FINDINGS: There has been interval decrease in the size of the right pleural fluid collection with persistent pu lmonary consolidation in the right mid and lower lung woodward. There is no evidence of pneumothorax. There appear to be patchy areas of pulmonary consolidation in the left perihilar region and left lung base as was demonstrated on the previous CT. The cardiac silhouette is enlarged with dual lead AICD. There is atherosclerotic vascular calcification of the thoracic aorta. The bony structures are unremarkable. IMPRESSION: 1. Interval decrease in size of right pleural fluid collection with persistent pulmonary consolidatio n in the right mid and lower lung woodward and patchy areas of pulmonary consolidation left perihilar r egion and left lung base. 2. No evidence of pneumothorax. 3. Enlarged cardiac silhouette with AICD.
[2018-03-28] MEDS ORDERED: LASIX IV ONE (20:32)
[2018-03-28] MEDS: SODIUM CHLORIDE FLUSH SYRINGE 10 ML IV SCH (22:45)
[2018-03-28] MEDS: PRAVACHOL PO SCH (22:45)
--- NOTE | 2018-03-29 08:51 | Progress Note ---
Assessment and Plan 83 y/o male with bilateral pleural effusions, right >>>left admitted with worsening dyspnea on exertion and hypoxemia. 1. Continue diuresis as tolerated 2. Await Protein and LDH on pleural fluid, i suspect this will be a transudate 3. Reviewed cards notes. If possible, patient could use an echo to evaluate right sided pressures as he could have cor pulmonale from COPD and chronic hypoxemia. Or if he had a recent echo in the office, can this be reviewed and let us know what his right sided pressures are 4. Follow up cytology on fluid, gram stain was negative so no empyema Thank you for this consult, will continue to follow along with you Subjective Date of service: 03/29/18 Interval history: Patient had thoracentesis yesterday. Not sure of total amount removed as I cannot find it in documentation. Objective Vital Signs - 12hr 03/28/18 03/28/18 03/28/18 22:45 23:07 23:47 Temperature 99.7 F H Pulse Rate 60 66 Respiratory 24 26 H Rate Blood Pressure 135/54 103/40 O2 Sat by Pulse 92 93 Oximetry 03/29/18 03/29/18 03/29/18 04:18 04:38 07:34 Temperature 98.3 F 97.9 F Pulse Rate 60 68 60 Respiratory 24 22 18 Rate Blood Pressure 127/48 114/47 O2 Sat by Pulse 94 94 98 Oximetry Constitutional: alert, appears uncomfortable Eyes: non-icteric ENT: oropharynx moist Neck: supple Ascultation: Right: diminished breath sounds (above the upper mid back zone), Bilateral: rales Percussion: Right: dull Tactile fremitus: Right: diminished Extremities: edema CBC and BMP: 03/28/18 06:26 03/28/18 06:26 ABG, PT/INR, D-dimer: ABG POC ABG pH 7.455 (7.35-7.45) H 03/27/18 15:11 POC ABG pCO2 31.3 (35-45) L 03/27/18 15:11 POC ABG pO2 57 (80-105) L 03/27/18 15:11 POC ABG HCO3 22.0 03/27/18 15:11 POC ABG Total CO2 23 03/27/18 15:11 POC ABG O2 Sat 91 03/27/18 15:11 PT/INR, D-dimer PT 15.6 Sec. (12.2-14.9) H 03/28/18 12:40 INR 1.20 (0.87-1.13) H 03/28/18 12:40 Abnormal lab findings: Abnormal Labs 03/27/18 03/27/18 03/27/18 13:29 13:29 13:29 RBC 2.93 L Hgb 10.2 L Hct 29.8 L MCV 102 H MCH 35 H RDW 17.0 H Lymph % (Auto) 12.4 L [place] % (Auto) 11.2 H Lymph # 1.0 L [place] # 0.9 H Seg Neutrophils % 74.6 H PT INR POC ABG pH POC ABG pCO2 POC ABG pO2 Carbon Dioxide 20 L Glucose 109 H Direct Bilirubin 0.3 H Alkaline Phosphatase 140 H Lactate Dehydrogenase NT-Pro-B Natriuret Pep Total Protein Albumin 3.5 L TSH 03/27/18 03/27/18 03/27/18 13:29 15:11 20:16 RBC Hgb Hct MCV MCH RDW Lymph % (Auto) [place] % (Auto) Lymph # [place] # Seg Neutrophils % PT INR POC ABG pH 7.455 H POC ABG pCO2 31.3 L POC ABG pO2 57 L Carbon Dioxide Glucose Direct Bilirubin Alkaline Phosphatase Lactate Dehydrogenase NT-Pro-B Natriuret Pep 5803 H Total Protein Albumin TSH 7.370 H 03/28/18 03/28/18 03/28/18 06:26 06:26 06:26 RBC 2.81 L Hgb 9.8 L Hct 28.5 L MCV 102 H MCH 35 H RDW 17.2 H Lymph % (Auto) [place] % (Auto) Lymph # [place] # Seg Neutrophils % PT INR POC ABG pH POC ABG pCO2 POC ABG pO2 Carbon Dioxide Glucose 102 H Direct Bilirubin Alkaline Phosphatase Lactate Dehydrogenase 197 H NT-Pro-B Natriuret Pep Total Protein 5.8 L Albumin 3.3 L TSH 03/28/18 12:40 RBC Hgb Hct MCV MCH RDW Lymph % (Auto) [place] % (Auto) Lymph # [place] # Seg Neutrophils % PT 15.6 H INR 1.20 H POC ABG pH POC ABG pCO2 POC ABG pO2 Carbon Dioxide Glucose Direct Bilirubin Alkaline Phosphatase Lactate Dehydrogenase NT-Pro-B Natriuret Pep Total Protein Albumin TSH
--- NOTE | 2018-03-29 09:25 | Progress Note ---
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 subtle liver cirrhosis is warranted as this may also be a cause for a unilateral right sided pleural effusion No further cardiac work-up is needed for the time being and patient can follow- up with his primary loan inspector as outpatient Lasix 20 mg po daily is also recommended upon discharge Original Note: Assessment and Plan Pleural effusion, right greater than the left s/p thoracentesis Hx of Emphysema Presence of PPM Hypertension Anemia, chronic Non-obstructive CAD EF 50% on echocardiogram just 4 months ago. Recommend: Medical therapy for non-obstructive CAD. Otherwise, conservative cardiac management. Subjective Date of service: 03/29/18 Interval history: Patient appears well. Tolerating his breakfast. He is status post thoracentesis on 03/28. He reports his breathing is better. Objective Vital Signs Temp Pulse Pulse Resp Resp BP BP 03/29/18 07:34 97.9 F 60 18 114/47 03/29/18 04:38 98.3 F 68 22 127/48 03/29/18 04:18 60 24 03/28/18 23:47 66 26 H 03/28/18 23:07 99.7 F H 60 24 103/40 03/28/18 22:45 135/54 03/28/18 20:30 72 32 H 03/28/18 20:21 97.0 F L 87 16 99/62 03/28/18 20:20 80 28 H 03/28/18 20:10 75 32 H 03/28/18 20:06 97.7 F 67 19 135/54 03/28/18 20:00 97.7 F 59 L 20 135/54 03/28/18 12:08 97.9 F 62 20 160/73 03/28/18 09:30 Pulse Ox 03/29/18 07:34 98 03/29/18 04:38 94 03/29/18 04:18 94 03/28/18 23:47 93 03/28/18 23:07 92 03/28/18 22:45 03/28/18 20:30 93 03/28/18 20:21 99 03/28/18 20:20 90 03/28/18 20:10 03/28/18 20:06 75 L 03/28/18 20:00 77 L 03/28/18 12:08 90 03/28/18 09:30 91 - Physical Examination General: No Apparent Distress HEENT: Positive: PERRL Cardiac: Positive: Reg Rate and Rhythm Lungs: Positive: Decreased Breath Sounds Neuro: Positive: Grossly Intact Extremities: Absent: edema - Labs and Meds Cardiac Enzymes 03/28/18 Range/Units 06:26 Lactate Dehydrogenase 197 H (91-180) units/L Coagulation 03/28/18 Range/Units 12:40 PT 15.6 H (12.2-14.9) Sec. INR 1.20 H (0.87-1.13)
[2018-03-29] MEDS: ALLBEE WITH C PO SCH (09:43)
[2018-03-29] MEDS: LASIX IV SCH (09:43)
[2018-03-29] MEDS: FOLVITE PO SCH (09:43)
[2018-03-29] MEDS: COREG PO SCH ×2 (09:44→22:27)
[2018-03-29] MEDS: SODIUM CHLORIDE FLUSH SYRINGE 10 ML IV SCH ×2 (09:44→22:30)
[2018-03-29] MEDS: ZESTRIL PO SCH (09:45)
[2018-03-29] MEDS: NORVASC PO SCH (09:46)
[2018-03-29] MEDS: THERAGRAN-M Tab PO SCH (12:56)
--- NOTE | 2018-03-29 14:20 | Progress Note ---
Assessment and Plan Assessment and plan: 83-year-old man with HTN, CHF EF 55%, sp PPM, COPD, RI, CAD S/P Stent Placement, Anemia who presents with shortness of breath and chest discomfort 2 weeks, acknowledges orthopnea, PND, GOVEA, decreased exercise tolerance and bipedal edema he went to his PCP who sent him to the ER. Admits that he was not taking his lasix Problems Acute on chronic diatolic CHF Bilateral pleural effusion, right larger than left Acute hypoxic respiratory failure Plan -sp Right thoracentesis, 03/28/18, fluid analysis cw transudative fluid -IV diuresis, cardiology consult appreciated ?hx of cirrhosis?, obtain hepatitis serology and ruq us -Supplemental oxygen as needed DVT prophylaxis chemical History Interval history: Complaining of shortness of breath, orthopnea, PND, pedal edema No fever no chills No nausea or vomiting No wheezing Hospitalist Physical - Physical exam Narrative exam: General.: Mild distress HEENT: Moist mucous membranes, extraocular muscles intact, no lymphadenopathy Neck: supple Cardiac: S1-S2 heard Lungs: Dullness to lower right lung, left base crackles Abdomen: soft , nontender, nondistended, bowel sounds positive Extremities: Bipedal edema Skin: no rash or lesions Neurologic: no gross focal deficits Psych: calm, and cooperative - Constitutional Vitals: Temp Pulse Resp BP Pulse Ox 97.9 F 59 L 18 114/47 97 03/29/18 07:34 03/29/18 09:46 03/29/18 07:34 03/29/18 09:46 03/29/18 13:35 General appearance: Present: mild distress Results - Labs CBC & Chem 7: 03/28/18 06:26 03/28/18 06:26 Labs: Laboratory Last Values WBC 5.6 K/mm3 (4.5-11.0) 03/28/18 06:26 RBC 2.81 M/mm3 (3.65-5.03) L 03/28/18 06:26 Hgb 9.8 gm/dl (11.8-15.2) L 03/28/18 06:26 Hct 28.5 % (35.5-45.6) L 03/28/18 06:26 MCV 102 fl (84-94) H 03/28/18 06:26 MCH 35 pg (28-32) H 03/28/18 06:26 MCHC 34 % (32-34) 03/28/18 06:26 RDW 17.2 % (13.2-15.2) H 03/28/18 06:26 Plt Count 144 K/mm3 (140-440) 03/28/18 06:26 Lymph % (Auto) 12.4 % (13.4-35.0) L 03/27/18 13:29 [place] % (Auto) 11.2 % (0.0-7.3) H 03/27/18 13:29 Eos % (Auto) 0.6 % (0.0-4.3) 03/27/18 13:29 Baso % (Auto) 1.2 % (0.0-1.8) 03/27/18 13:29 Lymph # 1.0 K/mm3 (1.2-5.4) L 03/27/18 13:29 [place] # 0.9 K/mm3 (0.0-0.8) H 03/27/18 13:29 Eos # 0.0 K/mm3 (0.0-0.4) 03/27/18 13:29 Baso # 0.1 K/mm3 (0.0-0.1) 03/27/18 13:29 Seg Neutrophils % 74.6 % (40.0-70.0) H 03/27/18 13:29 Seg Neutrophils # 6.2 K/mm3 (1.8-7.7) 03/27/18 13:29 PT 15.6 Sec. (12.2-14.9) H 03/28/18 12:40 INR 1.20 (0.87-1.13) H 03/28/18 12:40 POC ABG pH 7.455 (7.35-7.45) H 03/27/18 15:11 POC ABG pCO2 31.3 (35-45) L 03/27/18 15:11 POC ABG pO2 57 (80-105) L 03/27/18 15:11 POC ABG HCO3 22.0 03/27/18 15:11 POC ABG Total CO2 23 03/27/18 15:11 POC ABG O2 Sat 91 03/27/18 15:11 POC ABG Base Excess -2 03/27/18 15:11 FiO2 32 % 03/27/18 15:11 Sodium 137 mmol/L (137-145) 03/28/18 06:26 Potassium 4.3 mmol/L (3.6-5.0) 03/28/18 06:26 Chloride 101.5 mmol/L (98-107) 03/28/18 06:26 Carbon Dioxide 25 mmol/L (22-30) 03/28/18 06:26 Anion Gap 15 mmol/L 03/28/18 06:26 BUN 17 mg/dL (9-20) 03/28/18 06:26 Creatinine 1.1 mg/dL (0.8-1.5) 03/28/18 06:26 Estimated GFR > 60 ml/min 03/28/18 06:26 BUN/Creatinine Ratio 15 % 03/28/18 06:26 Glucose 102 mg/dL (75-100) H 03/28/18 06:26 Calcium 8.7 mg/dL (8.4-10.2) 03/28/18 06:26 Total Bilirubin 0.50 mg/dL (0.1-1.2) 03/28/18 06:26 Direct Bilirubin 0.3 mg/dL (0-0.2) H 03/27/18 13:29 Indirect Bilirubin 0.3 mg/dL 03/27/18 13:29 AST 29 units/L (5-40) 03/28/18 06:26 ALT 23 units/L (7-56) 03/28/18 06:26 Alkaline Phosphatase 126 units/L (35-129) 03/28/18 06:26 Lactate Dehydrogenase 197 units/L (91-180) H 03/28/18 06:26 Troponin T 0.015 ng/mL (0.00-0.029) 03/27/18 13:29 NT-Pro-B Natriuret Pep 5803 pg/mL (0-900) H 03/27/18 13:29 Total Protein 5.8 g/dL (6.3-8.2) L 03/28/18 06:26 Albumin 3.3 g/dL (3.9-5) L 03/28/18 06:26 Albumin/Globulin Ratio 1.3 % 03/28/18 06:26 TSH 7.370 mlU/mL (0.270-4.200) H 03/27/18 20:16 Free T4 1.27 ng/dL (0.76-1.46) 03/27/18 20:16 Fluid Type Pleural 03/28/18 Unknown Fluid Color Neyda 03/28/18 Unknown Fluid Appearance Clear 03/28/18 Unknown Fluid WBC 29 /mm3 03/28/18 Unknown Fluid RBC 8 /mm3 03/28/18 Unknown Fluid Seg Neutrophils 7.0 % 03/28/18 Unknown Fluid Lymphocytes 17.0 % 03/28/18 Unknown Fluid Reactive Lymphs 5.0 % 03/28/18 Unknown Fluid Monocytes 67.0 % 03/28/18 Unknown Fluid Eosinophils 4.0 % 03/28/18 Unknown Fluid Basophils 0 % 03/28/18 Unknown
[2018-03-29 16:21] LABS: Hepatitis B Surface Antigen Non-Reactive (Negative); Hepatitis C Virus Antibody Non-Reactive (NonReactive)
[2018-03-29] MEDS: PRAVACHOL PO SCH (22:27)
--- NOTE | 2018-03-30 07:59 | Ultrasound Report ---
ULTRASOUND THORACENTESIS History: Right pleural effusion. Description of procedure: Informed consent was obtained. Sterile technique was utilized. 1% lidocaine for skin anesthesia. Using ultrasound guidance, a 5 Welsh centesis needle was advanced into the right pleural space. There was spontaneous return of clear yellow fluid. 2.9 L of fluid was aspirated. 120 cc of fluid was sent to the lab for analysis. No complications. Impression: Successful large volume ultrasound-guided right thoracentesis.
[2018-03-30 08:09] VITALS: BP 118/50
--- NOTE | 2018-03-30 10:39 | Progress Note ---
Addendum entered and electronically signed by FEDERICO URIOSTEGUI MD 03/30/18 16:52: Patient has undergone thoracentesis for the presenting large right pleural effus ion. No active cardiac issues, we will follow intermittently. Original Note: Assessment and Plan Pleural effusion, right greater than the left s/p thoracentesis Hx of Emphysema Presence of PPM Hypertension Anemia, chronic Non-obstructive CAD EF 50% on echocardiogram just 4 months ago. Recommend: Medical therapy for non-obstructive CAD. Otherwise, conservative cardiac management. Subjective Date of service: 03/30/18 Interval history: Patient is resting in bed comfortably. No cardiac events overnight. Objective Vital Signs Temp Pulse Resp BP Pulse Ox 03/30/18 08:06 98.5 F 66 18 118/50 93 03/30/18 07:35 100 03/30/18 04:17 97.4 F L 65 18 114/52 96 03/29/18 23:49 98.4 F 64 16 110/45 94 03/29/18 23:27 18 03/29/18 22:30 22 97 03/29/18 22:27 68 20 104/41 03/29/18 22:00 60 03/29/18 20:34 96 03/29/18 19:58 100.4 F H 68 18 104/41 94 03/29/18 17:22 98.0 F 80 20 132/67 93 03/29/18 13:35 97 03/29/18 12:21 98.0 F 72 20 107/47 97 - Physical Examination General: No Apparent Distress HEENT: Positive: PERRL Cardiac: Positive: Reg Rate and Rhythm Lungs: Positive: Decreased Breath Sounds Neuro: Positive: Grossly Intact Extremities: Absent: edema
[2018-03-30] MEDS: ALLBEE WITH C PO SCH (11:31)
[2018-03-30] MEDS: SODIUM CHLORIDE FLUSH SYRINGE 10 ML IV SCH (11:32)
[2018-03-30] MEDS: NORVASC PO SCH (11:32)
[2018-03-30] MEDS: ZESTRIL PO SCH (11:32)
[2018-03-30] MEDS: THERAGRAN-M Tab PO SCH (11:32)
[2018-03-30] MEDS: FOLVITE PO SCH (11:32)
[2018-03-30] MEDS: LASIX IV SCH (11:32)
[2018-03-30] MEDS: COREG PO SCH (11:32)
--- NOTE | 2018-03-30 13:28 | Progress Note ---
Assessment and Plan 83 y/o male with bilateral pleural effusions, right >>>left admitted with worsening dyspnea on exertion and hypoxemia. 1. Continue diuresis as tolerated 2. Await Protein and LDH on pleural fluid, i suspect this will be a transudate. Negative for Malignant cells. 3. Reviewed cards notes. Normal EF but need right sided pressure numbers if available. Looking to see if there is any pulmonary hypertension. 4. Long discussion at bedside with patient and about the importance of using lasix therapy daily and daily weights. Patient readily admits to not taking diuretic. Thank you for this consult, will continue to follow along with you Subjective Date of service: 03/30/18 Interval history: No acute events. Breathing stable. Remains negative based on I/O from chart Objective Vital Signs - 12hr 03/30/18 03/30/18 03/30/18 04:17 07:35 08:06 Temperature 97.4 F L 98.5 F Pulse Rate 65 66 Respiratory 18 18 Rate Blood Pressure 114/52 118/50 O2 Sat by Pulse 96 100 93 Oximetry Constitutional: alert, appears uncomfortable Eyes: non-icteric ENT: oropharynx moist Neck: supple Ascultation: Right: diminished breath sounds (above the upper mid back zone), Bilateral: rales Percussion: Right: dull Tactile fremitus: Right: diminished Extremities: edema CBC and BMP: 03/28/18 06:26 03/28/18 06:26 ABG, PT/INR, D-dimer: ABG POC ABG pH 7.455 (7.35-7.45) H 03/27/18 15:11 POC ABG pCO2 31.3 (35-45) L 03/27/18 15:11 POC ABG pO2 57 (80-105) L 03/27/18 15:11 POC ABG HCO3 22.0 03/27/18 15:11 POC ABG Total CO2 23 03/27/18 15:11 POC ABG O2 Sat 91 03/27/18 15:11 PT/INR, D-dimer PT 15.6 Sec. (12.2-14.9) H 03/28/18 12:40 INR 1.20 (0.87-1.13) H 03/28/18 12:40 Abnormal lab findings: Abnormal Labs 03/27/18 03/27/18 03/27/18 13:29 13:29 13:29 RBC 2.93 L Hgb 10.2 L Hct 29.8 L MCV 102 H MCH 35 H RDW 17.0 H Lymph % (Auto) 12.4 L [place] % (Auto) 11.2 H Lymph # 1.0 L [place] # 0.9 H Seg Neutrophils % 74.6 H PT INR POC ABG pH POC ABG pCO2 POC ABG pO2 Carbon Dioxide 20 L Glucose 109 H Direct Bilirubin 0.3 H Alkaline Phosphatase 140 H Lactate Dehydrogenase NT-Pro-B Natriuret Pep Total Protein Albumin 3.5 L TSH 03/27/18 03/27/18 03/27/18 13:29 15:11 20:16 RBC Hgb Hct MCV MCH RDW Lymph % (Auto) [place] % (Auto) Lymph # [place] # Seg Neutrophils % PT INR POC ABG pH 7.455 H POC ABG pCO2 31.3 L POC ABG pO2 57 L Carbon Dioxide Glucose Direct Bilirubin Alkaline Phosphatase Lactate Dehydrogenase NT-Pro-B Natriuret Pep 5803 H Total Protein Albumin TSH 7.370 H 03/28/18 03/28/18 03/28/18 06:26 06:26 06:26 RBC 2.81 L Hgb 9.8 L Hct 28.5 L MCV 102 H MCH 35 H RDW 17.2 H Lymph % (Auto) [place] % (Auto) Lymph # [place] # Seg Neutrophils % PT INR POC ABG pH POC ABG pCO2 POC ABG pO2 Carbon Dioxide Glucose 102 H Direct Bilirubin Alkaline Phosphatase Lactate Dehydrogenase 197 H NT-Pro-B Natriuret Pep Total Protein 5.8 L Albumin 3.3 L TSH 03/28/18 12:40 RBC Hgb Hct MCV MCH RDW Lymph % (Auto) [place] % (Auto) Lymph # [place] # Seg Neutrophils % PT 15.6 H INR 1.20 H POC ABG pH POC ABG pCO2 POC ABG pO2 Carbon Dioxide Glucose Direct Bilirubin Alkaline Phosphatase Lactate Dehydrogenase NT-Pro-B Natriuret Pep Total Protein Albumin TSH
--- NOTE | 2018-03-30 14:47 | Discharge Summary ---
Providers - Providers Date of Admission: 03/27/18 16:36 Attending physician: HORTENCIA MANCINI MD 03/27/18 19:19 Consult to Cardiology [CONS] Routine Consulting Provider: FEDERICO URIOSTEGUI Reason For Exam: chf Consult to Physician [CONS] Routine Comment: Consulting Provider: KATHLEEN ANDREWS Physician Instructions: Reason For Exam: pleural effusion 03/27/18 19:21 Consult to Interventional Radiology [CONS] Routine Consulting Provider: MOLLY HAGER Reason For Exam: thoracentesis Place consult to:: VASCULAR Notified:: OFFICE Phone number called:: [phone] Was contact made?: Yes If yes, spoke with:: MOR Time called:: 09:14 Comment:: SELINA CALLED BACK AND SPOKE WITH NURSE 03/28/18 11:43 Physical Therapy Evaluation and Treat [CONS] Routine Comment: Reason For Exam: ataxia Primary care physician: MANAGER PERSONNEL SELECTION Hospitalization Condition: Stable Hospital course: 83-year-old man with HTN, CHF EF 55%, sp PPM, COPD, [place], CAD S/P Stent Placement, Anemia who presents with shortness of breath and chest discomfort 2 weeks, acknowledges orthopnea, PND, GOVEA, decreased exercise tolerance and bipedal edema he went to his PCP who sent him to the ER. Admits that he was not taking his lasix. -sp Right thoracentesis, 03/28/18, fluid analysis cw transudative fluid -sp IV diuresis, cardiology consult appreciated ?hx of cirrhosis?, hepatitis serology was neg and ruq us showed some non specific infiltration, cw fatty liver vs early cirrhosis -Supplemental oxygen was weaned off prior to dc Problems Acute on chronic diastolic CHF Bilateral pleural effusion, right larger than left Acute hypoxic respiratory failure Disposition: DC-01 TO HOME OR SELFCARE Time spent for discharge: 33 mins Core Measure Documentation - Palliative Care Palliative Care/ Comfort Measures: Not Applicable - Core Measures Any of the following diagnoses?: heart failure - Heart Failure Discharge Requirements RANDY/ARB for LVSD if EF <40%: No Reason for no RANDY/ARB: Hypotension Beta ana at discharge: Yes Exam - Constitutional Vitals: Temp Pulse Resp BP Pulse Ox 98.5 F 60 18 118/50 93 03/30/18 08:06 03/30/18 10:00 03/30/18 08:06 03/30/18 08:06 03/30/18 08:06 General appearance: Present: no acute distress, well-nourished - EENT Eyes: Present: PERRL ENT: hearing intact, clear oral mucosa - Neck Neck: Present: supple, normal ROM - Respiratory Respiratory effort: normal Respiratory: bilateral: CTA - Cardiovascular Heart Sounds: Present: S1 & S2. Absent: rub, click - Extremities Extremities: pulses symmetrical, No edema Peripheral Pulses: within normal limits - Abdominal General gastrointestinal: Present: soft, non-tender, non-distended, normal bowel sounds Male genitourinary: Present: normal - Integumentary Integumentary: Present: clear, warm, dry - Musculoskeletal Musculoskeletal: gait normal, strength equal bilaterally - Psychiatric Psychiatric: appropriate mood/affect, intact judgment & insight - Neurologic Neurologic: CNII-XII intact, moves all extremities Plan Follow up with: TIGRE SINGH MD [Staff Physician] - 7 Days FEDERICO URIOSTEGUI MD [Staff Physician] - 7 Days PRIMARY CARE, [Primary Care Provider] - 3-5 Days Prescriptions: B Complex W/Vitamin C [Allbee with C] 1 each PO DAILY #30 tablet Folic Acid [Folvite] 1 mg PO QDAY #30 tablet Furosemide [Lasix] 20 mg PO QDAY #30 tablet Multivitamin Tab W-MINERAL [Multiple Vitamin/Mineral (Theragran M)] 1 each PO QDAY #30 tablet [place]-3 Krill Oil 300 mg Sfgl 1 tab PO QDAY #30 Ubidecarenone [Coq-10] 300 mg PO QDAY #30
[2018-03-31 07:34] LABS: LDH,Body Fluid 49; Total Protein,Body Fluid < 3.0 (15.0-45.0)
--- NOTE | 2018-03-31 17:49 | Ultrasound Report ---
FINAL REPORT EXAM: US ABDOMEN LIMITED HISTORY: cirrhosis TECHNIQUE: Ultrasound examination of the abdomen PRIORS: None. FINDINGS: Right pleural effusion partly visualized. Normal visible portion of aorta. Normal common bile duct with 2.8 mm diameter. Normal-appearing right kidney. Normal visible portion of pancreas. Nonspecific increased echogenicity of liver parenchyma may reflect fatty infiltration. Liver echotext ure is coarse. No visualized focal liver lesion. Nonspecific small minimally shadowing foci are noted in the dependent gallbladder lumen. These are gaffney ggestive of small calculi. No gallbladder wall thickening or pericholecystic fluid. IMPRESSION: Partly visualized right pleural effusion Liver with diffuse parenchymal change suggesting hepatocellular disease, commonly steatosis. This may reflect cirrhosis given patient history. Differential includes hepatitis Small minimally shadowing gallbladder lumen echogenic foci may reflect gallstones
== END 2018-03-30 17:00 | disposition home or self-care (01) | DRG 291 ==
LOC: ED 12:27 → 4A 16:36
PROVIDERS: ADMIT Internal Medicine; ATTEND Internal Medicine
PROC: 4A033R1 Measurement of Arterial Saturation, Peripheral, Percutaneous Approach (ICD-10-PCS; 2018-03-27)
PROC: 0W993ZZ Drainage of Right Pleural Cavity, Percutaneous Approach (ICD-10-PCS; principal; 2018-03-28)
PROC: 5A09357 Assistance with Respiratory Ventilation, Less than 24 Consecutive Hours, Continuous Positive Airway Pressure (ICD-10-PCS; 2018-03-28)
DX: I11.0 Hypertensive heart disease with heart failure (principal); J96.01 Acute respiratory failure with hypoxia; J90 Pleural effusion, not elsewhere classified; I50.43 Acute on chronic combined systolic (congestive) and diastolic (congestive) heart failure; J44.9 Chronic obstructive pulmonary disease, unspecified; D53.9 Nutritional anemia, unspecified; I25.10 Atherosclerotic heart disease of native coronary artery without angina pectoris; Z96.649 Presence of unspecified artificial hip joint; Z95.0 Presence of cardiac pacemaker; I25.2 Old myocardial infarction; Z95.5 Presence of coronary angioplasty implant and graft; Z88.0 Allergy status to penicillin; Z79.82 Long term (current) use of aspirin; Z79.899 Other long term (current) drug therapy
CPT/HCPCS: 32555; 36415; 71045; 71046; 71275; 76705; 80048; 80053; 80074; 80076; 82803; 82947; 83605; 83615; 83880; 84160; 84439; 84443; 84484; 85025; 85027; 85610; 87102; 87116; 88112; 88305; 89051; 93005; 93010; 94640; 94660; 94760; G0378; A9270-GY; J1940; Q9967

== ENCOUNTER 2019-01-25 12:13 | Inpatient (IN) | payer MEDICARE ==
[2019-01-25] MEDS ORDERED: ONDANSETRON 4 MG/2 ML INJ IV PRN (13:51)
[2019-01-25] MEDS ORDERED: ACETAMINOPHEN 325 MG TAB PO PRN (13:51)
--- NOTE | 2019-01-25 15:12 | XRay Report ---
CHEST 1 VIEW 01/25/2019 3:00 PM INDICATION / CLINICAL INFORMATION: CHF. COMPARISON: Chest x-ray 03/28/2018 FINDINGS: SUPPORT DEVICES: Left subclavian pacemaker leads project in expected position HEART / MEDIASTINUM: No significant abnormality. LUNGS / PLEURA: Moderate right pleural effusion and small left pleural effusion. No pneumothorax. ADDITIONAL FINDINGS: No significant additional findings. IMPRESSION: 1. Moderate right and small left pleural effusions. Signer Name: Rahat Guy MD Signed: 01/25/2019 3:08 PM Workstation Name: [id number]
--- NOTE | 2019-01-25 15:16 | History and Physical Report ---
History of Present Illness Date of examination: 01/25/19 Date of admission: 01/25/19 13:27 History of present illness: Please refer to H&P obtain from the office. Medications and Allergies Allergies Allergy/AdvReac Type Severity Reaction Status Date / Time Penicillins Allergy Unknown Unknown Verified 09/30/16 06:20 Home Medications Medication Instructions Recorded Confirmed Last Taken Type Amlodipine Besylate 5 mg PO QDAY 09/30/16 03/27/18 09/30/16 04:30 History Aspirin [Adult Low Dose Aspirin EC] 81 mg PO QDAY 09/30/16 03/27/18 1 Week Ago History ~09/23/16 Carvedilol 6.25 mg PO BID 09/30/16 03/27/18 09/30/16 04:30 History Lovastatin Tab [Mevacor Tab] 40 mg PO HS 09/30/16 03/27/18 09/29/16 History Trandolapril 2 mg PO QDAY 09/30/16 03/27/18 09/30/16 04:30 History Fluticasone/Vilanterol [Breo 1 each IH PRN 03/27/18 03/27/18 Unknown History Ellipta 100-25 Mcg INH] B Complex W/Vitamin C [Allbee with 1 each PO DAILY #30 tablet 03/30/18 Unknown Rx C] Folic Acid [Folvite] 1 mg PO QDAY #30 tablet 03/30/18 Unknown Rx Furosemide [Lasix] 20 mg PO QDAY #30 tablet 03/30/18 Unknown Rx Multivitamin Tab W-MINERAL 1 each PO QDAY #30 tablet 03/30/18 Unknown Rx [Multiple Vitamin/Mineral (Theragran M)] [place]-3 Krill Oil 300 mg Sfgl 1 tab PO QDAY #30 03/30/18 Unknown Rx Ubidecarenone [Coq-10] 300 mg PO QDAY #30 03/30/18 Unknown Rx Active Meds: Active Medications Acetaminophen (Tylenol) 650 mg PO Q4H PRN PRN Reason: Pain MILD(1-3)/Fever >100.5/HOWARD Furosemide (Lasix) 40 mg IV 0600,1800 MIGEL Ondansetron HCl (Zofran) 4 mg IV Q8H PRN PRN Reason: Nausea And Vomiting Sodium Chloride (Sodium Chloride Flush Syringe 10 Ml) 10 ml IV BID MIGEL Sodium Chloride (Sodium Chloride Flush Syringe 10 Ml) 10 ml IV PRN PRN PRN Reason: LINE FLUSH Assessment and Plan Decompensated CHF EF 45-50% 01/2019 Hx of Emphysema Presence of PPM Hypertension Anemia, chronic Non-obstructive CAD by [facility] in 2016 Plan: Will obtain a chest x-ray and labs. Medical therapy for decompensated heart failure to include IV diuretics
[2019-01-25] MEDS: FUROSEMIDE 40 MG/4 ML INJ IV SCH (17:02)
[2019-01-25 17:19] LABS: Basophils % (Auto) 0.7 % (0.0-1.8); Eosinophils # (Auto) 0.1 K/mm3 (0.0-0.4); Eosinophils % (Auto) 0.8 % (0.0-4.3); Hematocrit 29.5 % (35.5-45.6); Hemoglobin 9.8 gm/dl (11.8-15.2); Lymphocytes # (Auto) 0.9 K/mm3 (1.2-5.4); Lymphocytes % (Auto) 12.9 % (13.4-35.0); Mean Corpuscular HGB Conc 33 % (32-34); Mean Corpuscular Volume 96 fl (84-94); Monocytes # (Auto) 0.7 K/mm3 (0.0-0.8); Monocytes % (Auto) 9.8 % (0.0-7.3); Platelet Count 223 K/mm3 (140-440); Red Blood Count 3.08 M/mm3 (3.65-5.03); Red Cell Distribution Width 17.5 % (13.2-15.2)
[2019-01-25 17:27] LABS: INR 1.32 (0.87-1.13)
[2019-01-25 17:32] LABS: Calcium 8.4 mg/dL (8.4-10.2)
[2019-01-25] MEDS: carvediloL 6.25 MG TAB PO SCH (21:48)
[2019-01-25] MEDS: PRAVASTATIN 80 MG TAB PO SCH (21:49)
[2019-01-25] MEDS ORDERED: LOVASTATIN 40 MG PO SCH (22:00)
[2019-01-26 04:27] LABS: Calcium 7.9 mg/dL (8.4-10.2)
[2019-01-26] MEDS: FUROSEMIDE 40 MG/4 ML INJ IV SCH ×2 (05:42→17:06)
[2019-01-26] MEDS ORDERED: TRANDOLAPRIL 2 MG PO SCH (10:00)
[2019-01-26] MEDS ORDERED: OMEGA KRILL OIL PO SCH (10:00)
[2019-01-26] MEDS: FOLIC ACID 1 MG TAB PO SCH (10:31)
[2019-01-26] MEDS: carvediloL 6.25 MG TAB PO SCH ×2 (10:31→21:48)
[2019-01-26] MEDS: OMEGA-3 FATTY ACIDS/FISH OIL 1 GRAM CAP PO SCH (10:31)
[2019-01-26] MEDS: B COMPLEX W/VITAMIN C TAB PO SCH (10:32)
[2019-01-26] MEDS: ASPIRIN EC 81 MG TAB PO SCH (10:32)
[2019-01-26] MEDS: MULTIVITAMINS,THER W-MINERALS TAB PO SCH (10:32)
[2019-01-26] MEDS: LISINOPRIL 10 MG TAB PO SCH (10:35)
--- NOTE | 2019-01-26 11:14 | Progress Note ---
Assessment and Plan Decompensated CHF EF 45-50% 01/2019 Recurrent Pleural effusion presence of right pleurx cather Hx of Emphysema Presence of PPM Hypertension Anemia, chronic Non-obstructive CAD by [facility] in 2017 Recommendations: Sodium/fluid restriction. Daily weight. Continue IV diuretics. Pulmonary consultation and management of recurrent pleural effusion. Subjective Date of service: 01/26/19 Interval history: Patient reports his breathing is improving. Still with coughs and congestion. at bedside reports no drainage from right pleurx catheter. Objective Vital Signs Temp Pulse Resp BP Pulse Ox 01/26/19 10:31 64 122/54 01/26/19 08:42 97.9 F 121/54 01/26/19 06:45 64 01/26/19 03:51 97.6 F 01/26/19 03:48 60 18 103/52 92 01/25/19 23:34 97.5 F L 01/25/19 23:33 60 18 113/56 92 01/25/19 21:48 60 110/54 01/25/19 21:06 98.0 F 01/25/19 21:03 60 20 110/54 92 01/25/19 15:53 98.6 F 60 18 132/62 98 01/25/19 14:39 16 98 - Physical Examination General: No Apparent Distress HEENT: Positive: PERRL Neck: Positive: trachea midline Cardiac: Positive: Reg Rate and Rhythm Lungs: Positive: Decreased Breath Sounds Neuro: Positive: Grossly Intact Extremities: Absent: edema - Labs and Meds Coagulation 01/25/19 Range/Units 16:39 PT 16.2 H (12.2-14.9) Sec. INR 1.32 H (0.87-1.13) CBC 01/25/19 Range/Units 16:39 WBC 6.8 (4.5-11.0) K/mm3 RBC 3.08 L (3.65-5.03) M/mm3 Hgb 9.8 L (11.8-15.2) gm/dl Hct 29.5 L (35.5-45.6) % Plt Count 223 (140-440) K/mm3 Lymph # 0.9 L (1.2-5.4) K/mm3 [place] # 0.7 (0.0-0.8) K/mm3 Eos # 0.1 (0.0-0.4) K/mm3 Baso # 0.0 (0.0-0.1) K/mm3 Comprehensive Metabolic Panel 01/25/19 01/26/19 Range/Units 16:39 02:41 Sodium 134 L 133 L (137-145) mmol/L Potassium 4.8 4.4 (3.6-5.0) mmol/L Chloride 96.0 L 96.1 L (98-107) mmol/L Carbon Dioxide 22 24 (22-30) mmol/L BUN 51 H 49 H (9-20) mg/dL Creatinine 1.3 1.4 (0.8-1.5) mg/dL Glucose 97 93 (75-100) mg/dL Calcium 8.4 7.9 L (8.4-10.2) mg/dL
[2019-01-26] MEDS ORDERED: BREO ELLIPTA OD SCH (12:00)
--- NOTE | 2019-01-26 12:20 | Consultation ---
History of Present Illness Consult date: 01/26/19 Requesting physician: FEDERICO URIOSTEGUI Reason for consult: pleural effusion History of present illness: 83 y/o male with chronic TRANSUDATIVE pleural effusion, admitted with CHF exacerbation. Pulmonary asked to see secondary not working pleurx catheter. Per , patients catheter has not been working for several weeks. They went to [facility] ED but they did not call the IR physician from the ED. Seen in [facility] and has had significant weight gain. Past History Past Medical History: other (pleural effusion) Past Surgical History: Other (Pleurx placed at [facility]) Social history: Family history: CAD Medications and Allergies Allergies Allergy/AdvReac Type Severity Reaction Status Date / Time Penicillins Allergy Unknown Unknown Verified 09/30/16 06:20 Home Medications Medication Instructions Recorded Confirmed Last Taken Type Aspirin [Adult Low Dose Aspirin EC] 81 mg PO QDAY 09/30/16 01/25/19 1 Week Ago History ~09/23/16 Carvedilol 6.25 mg PO BID 09/30/16 01/25/19 09/30/16 04:30 History Lovastatin Tab [Mevacor Tab] 40 mg PO HS 09/30/16 01/25/19 09/29/16 History Trandolapril 2 mg PO QDAY 09/30/16 01/25/19 09/30/16 04:30 History B Complex W/Vitamin C [Allbee with 1 each PO DAILY #30 tablet 03/30/18 01/25/19 Unknown Rx C] Folic Acid [Folvite] 1 mg PO QDAY #30 tablet 03/30/18 01/25/19 Unknown Rx Multivitamin Tab W-MINERAL 1 each PO QDAY #30 tablet 03/30/18 01/25/19 Unknown Rx [Multiple Vitamin/Mineral (Theragran M)] [place]-3 Krill Oil 300 mg Sfgl 1 tab PO QDAY #30 03/30/18 01/25/19 Unknown Rx Breo Ellipta 100-25 Mcg INH 3 puff OD DAILY 01/25/19 01/25/19 Unknown History Furosemide [Lasix] 40 mg PO Q12HR 01/25/19 01/25/19 Unknown History Active Meds: Active Medications Acetaminophen (Tylenol) 650 mg PO Q4H PRN PRN Reason: Pain MILD(1-3)/Fever >100.5/HOWARD Arformoterol Tartrate (Brovana Nebu) 15 mcg IH Q12HRT [facility] Aspirin (Halfprin Ec) 81 mg PO QDAY [facility] Last Admin: 01/26/19 10:32 Dose: 81 mg Documented by: Budesonide (Pulmicort) 0.5 mg IH Q12HRT [facility] Carvedilol (Coreg) 6.25 mg PO BID [facility] Last Admin: 01/26/19 10:31 Dose: 6.25 mg Documented by: Fish Oil (Fish Oil) 1,999 mg PO QDAY [facility] Last Admin: 01/26/19 10:31 Dose: 1,999 mg Documented by: Folic Acid (Folvite) 1 mg PO QDAY [facility] Last Admin: 01/26/19 10:31 Dose: 1 mg Documented by: Furosemide (Lasix) 40 mg IV 0600,1800 [facility] Last Admin: 01/26/19 05:42 Dose: 40 mg Documented by: Lisinopril (Zestril) 10 mg PO QDAY [facility] Last Admin: 01/26/19 10:35 Dose: Not Given Documented by: Multivitamins/Minerals (Theragran-M Tab) 1 each PO QDAY [facility] Last Admin: 01/26/19 10:32 Dose: 1 each Documented by: Ondansetron HCl (Zofran) 4 mg IV Q8H PRN PRN Reason: Nausea And Vomiting Pravastatin Sodium (Pravachol) 80 mg PO QHS [facility] Last Admin: 01/25/19 21:49 Dose: 80 mg Documented by: Sodium Chloride (Sodium Chloride Flush Syringe 10 Ml) 10 ml IV BID [facility] Last Admin: 01/26/19 10:33 Dose: 10 ml Documented by: Sodium Chloride (Sodium Chloride Flush Syringe 10 Ml) 10 ml IV PRN PRN PRN Reason: LINE FLUSH Vitamin B Complex/Vitamin C (Allbee With C) 1 each PO DAILY [facility] Last Admin: 01/26/19 10:32 Dose: 1 each Documented by: Review of Systems All systems: negative Physical Examination Vital signs: Vital Signs Resp Pulse Ox 16 98 01/25/19 14:39 01/25/19 14:39 General appearance: asleep Eyes: non-icteric Neck: supple Ascultation: Right: diminished breath sounds, rales, egophony, Left: clear Gastrointestinal: soft Extremities: anasarca Results - Laboratory Findings CBC and BMP: 01/25/19 16:39 01/26/19 02:41 PT/INR, D-dimer PT 16.2 Sec. (12.2-14.9) H 01/25/19 16:39 INR 1.32 (0.87-1.13) H 01/25/19 16:39 Abnormal lab findings: Abnormal Labs 01/25/19 01/25/19 01/25/19 16:39 16:39 16:39 RBC 3.08 L Hgb 9.8 L Hct 29.5 L MCV 96 H RDW 17.5 H Lymph % (Auto) 12.9 L [place] % (Auto) 9.8 H Lymph # 0.9 L Seg Neutrophils % 75.8 H PT 16.2 H INR 1.32 H Sodium 134 L Chloride 96.0 L BUN 51 H Calcium 01/26/19 02:41 RBC Hgb Hct MCV RDW Lymph % (Auto) [place] % (Auto) Lymph # Seg Neutrophils % PT INR Sodium 133 L Chloride 96.1 L BUN 49 H Calcium 7.9 L - Diagnostic Findings Chest x-ray: image reviewed (right sided pleural effusion) Assessment and Plan Called IR and they will come evaluate the catheter. May need to be replaced and this was discussed with the . Ideally, the patient needs to obtain a net negative daily state to ensure that fluid does not reaccumulate. Assuming this is not capable, pleurx was placed. Otherwise, continue home regimen for COPD. Will continue to follow.
[2019-01-26] MEDS ORDERED: ALTEPLASE 2 MG INJ IV ONE (12:44)
--- NOTE | 2019-01-26 13:01 | Consultation ---
History of Present Illness - Reason for Consult Consult date: 01/26/19 malfunctioning pleurx catheter - History of Present Illness HPI: 83yo male with multiple medical problems currently hospitalized for decompensated heart failure with an systolic EF of 45-50% was directly admitted after a slow response to increase in lasix from daily to BID. In addition, the patient had a pleurx catheter placed at [facility] back in September. The states that initially approx. 600-700 ml of pleural fluid was removed every other day until about 3 weeks ago when that amount decreased dramatically. The patient denies any changes to his breathing but has noticed significant weight gain. However, after starting lasix BID with approx 800-900ml of UOP for the past week, his has noticed decreased swelling in his legs. ROS: as per HPI PE: NAD, A&Ox3 mild labored breathing Sats normal on room air right sided pleurx catheter intact with serous fluid noted in the tubing RRR 2+ lower extremity pitting edema feet warm and well perfused CXR reviewed Labs Reviewed Plan: Patient with malfunctioning pleurx catheter for several weeks and now with increased weight and large right-sided pleural effusion. patient seems to be responding to diuresis somewhat, Pulmonary to continue with aggressive diuresis. patient currently not requiring oxygen. will attempt to dwell TPA into the catheter for 1 hour and then can attempt aspiration. will continue to follow. Past History Past Medical History: other (pleural effusion) Past Surgical History: Other (Pleurx placed at [facility]) Social history: Family history: CAD Medications and Allergies Allergies Allergy/AdvReac Type Severity Reaction Status Date / Time Penicillins Allergy Unknown Unknown Verified 09/30/16 06:20 Home Medications Medication Instructions Recorded Confirmed Last Taken Type Aspirin [Adult Low Dose Aspirin EC] 81 mg PO QDAY 09/30/16 01/25/19 1 Week Ago History ~09/23/16 Carvedilol 6.25 mg PO BID 09/30/16 01/25/19 09/30/16 04:30 History Lovastatin Tab [Mevacor Tab] 40 mg PO HS 09/30/16 01/25/19 09/29/16 History Trandolapril 2 mg PO QDAY 09/30/16 01/25/19 09/30/16 04:30 History B Complex W/Vitamin C [Allbee with 1 each PO DAILY #30 tablet 03/30/18 01/25/19 Unknown Rx C] Folic Acid [Folvite] 1 mg PO QDAY #30 tablet 03/30/18 01/25/19 Unknown Rx Multivitamin Tab W-MINERAL 1 each PO QDAY #30 tablet 03/30/18 01/25/19 Unknown Rx [Multiple Vitamin/Mineral (Theragran M)] [place]-3 Krill Oil 300 mg Sfgl 1 tab PO QDAY #30 03/30/18 01/25/19 Unknown Rx Breo Ellipta 100-25 Mcg INH 3 puff OD DAILY 01/25/19 01/25/19 Unknown History Furosemide [Lasix] 40 mg PO Q12HR 01/25/19 01/25/19 Unknown History Active Meds: Active Medications Acetaminophen (Tylenol) 650 mg PO Q4H PRN PRN Reason: Pain MILD(1-3)/Fever >100.5/HOWARD Arformoterol Tartrate (Brovana Nebu) 15 mcg IH Q12HRT [facility] Aspirin (Halfprin Ec) 81 mg PO QDAY [facility] Last Admin: 01/26/19 10:32 Dose: 81 mg Documented by: Budesonide (Pulmicort) 0.5 mg IH Q12HRT [facility] Carvedilol (Coreg) 6.25 mg PO BID [facility] Last Admin: 01/26/19 10:31 Dose: 6.25 mg Documented by: Fish Oil (Fish Oil) 1,999 mg PO QDAY [facility] Last Admin: 01/26/19 10:31 Dose: 1,999 mg Documented by: Folic Acid (Folvite) 1 mg PO QDAY [facility] Last Admin: 01/26/19 10:31 Dose: 1 mg Documented by: Furosemide (Lasix) 40 mg IV 0600,1800 [facility] Last Admin: 01/26/19 05:42 Dose: 40 mg Documented by: Lisinopril (Zestril) 10 mg PO QDAY [facility] Last Admin: 01/26/19 10:35 Dose: Not Given Documented by: Multivitamins/Minerals (Theragran-M Tab) 1 each PO QDAY [facility] Last Admin: 01/26/19 10:32 Dose: 1 each Documented by: Ondansetron HCl (Zofran) 4 mg IV Q8H PRN PRN Reason: Nausea And Vomiting Pravastatin Sodium (Pravachol) 80 mg PO QHS [facility] Last Admin: 01/25/19 21:49 Dose: 80 mg Documented by: Sodium Chloride (Sodium Chloride Flush Syringe 10 Ml) 10 ml IV BID [facility] Last Admin: 01/26/19 10:33 Dose: 10 ml Documented by: Sodium Chloride (Sodium Chloride Flush Syringe 10 Ml) 10 ml IV PRN PRN PRN Reason: LINE FLUSH Vitamin B Complex/Vitamin C (Allbee With C) 1 each PO DAILY [facility] Last Admin: 01/26/19 10:32 Dose: 1 each Documented by: Exam - Constitutional Vitals: Temp Pulse Resp BP Pulse Ox 97.9 F 64 14 122/54 96 01/26/19 08:42 01/26/19 12:13 01/26/19 12:13 01/26/19 10:31 01/26/19 12:13 Results - Labs CBC & Chem 7: 01/25/19 16:39 01/26/19 02:41 Labs: Abnormal lab results 01/25/19 01/25/19 01/25/19 Range/Units 16:39 16:39 16:39 RBC 3.08 L (3.65-5.03) M/mm3 Hgb 9.8 L (11.8-15.2) gm/dl Hct 29.5 L (35.5-45.6) % MCV 96 H (84-94) fl RDW 17.5 H (13.2-15.2) % Lymph % (Auto) 12.9 L (13.4-35.0) % [place] % (Auto) 9.8 H (0.0-7.3) % Lymph # 0.9 L (1.2-5.4) K/mm3 Seg Neutrophils % 75.8 H (40.0-70.0) % PT 16.2 H (12.2-14.9) Sec. INR 1.32 H (0.87-1.13) Sodium 134 L (137-145) mmol/L Chloride 96.0 L (98-107) mmol/L BUN 51 H (9-20) mg/dL Calcium (8.4-10.2) mg/dL 01/26/19 Range/Units 02:41 RBC (3.65-5.03) M/mm3 Hgb (11.8-15.2) gm/dl Hct (35.5-45.6) % MCV (84-94) fl RDW (13.2-15.2) % Lymph % (Auto) (13.4-35.0) % [place] % (Auto) (0.0-7.3) % Lymph # (1.2-5.4) K/mm3 Seg Neutrophils % (40.0-70.0) % PT (12.2-14.9) Sec. INR (0.87-1.13) Sodium 133 L (137-145) mmol/L Chloride 96.1 L (98-107) mmol/L BUN 49 H (9-20) mg/dL Calcium 7.9 L (8.4-10.2) mg/dL
[2019-01-26] MEDS: BUDESONIDE 0.5 MG/2 ML NEBU IH SCH ×2 (14:30→21:02)
[2019-01-26] MEDS: ARFORMOTEROL 15 MCG/2 ML NEBU IH SCH ×2 (14:30→21:02)
[2019-01-26] MEDS ORDERED: ALTEPLASE 2 MG INJ ONE (14:46)
[2019-01-26] MEDS ORDERED: WATER FOR INJ Sterile (PF) 10 ML ONE (14:47)
--- NOTE | 2019-01-26 16:25 | Event Note ---
Date: 01/26/19 6 mg t-PA infused in the pleuryx catheter. Following a dwell time of 1 hour, a total of 100 mls of fluid was aspirated. Would suspect the catheter is in a loculated space versus septated effusion. Will obtain a CT chest to further evaluate. No emergent need to exchange, would continue diuresis as patient is is now resting comfortably with no oxygen requirements.
[2019-01-26] MEDS: PRAVASTATIN 80 MG TAB PO SCH (21:47)
--- NOTE | 2019-01-26 23:37 | Cat Scan Report ---
CT chest w con INDICATION: Shortness of breath.. TECHNIQUE: All CT scans at this location are performed using the following dose modulation technique: Automated exposure control. CONTRAST: Omnipaque 300, 100 cc IV injection. COMPARISON: CTA chest 03/27/2018. FINDINGS: Development of a moderate/large left-sided effusion with associated atelectasis. The right- sided effusion now contains a pleural catheter. Pleural effusion size is is moderate. A small amount of air was likely introduced through the catheter. Chronic volume loss and fibrotic change remains at the right lung. Negative for significant acute appearing infiltrate. Adenopathy at the lower right neck and right paratracheal region has worsened. A underwriting service representative high right paratracheal node (series 2, image 24) has increased from 1.3 x 2 .1 cm-1.8 x 2.9 cm. Imaging of the upper abdomen demonstrates a cirrhotic configuration of the liver, splenomegaly and mi ld ascites. Soft tissue anasarca is noted. IMPRESSION: 1. New moderate/large left-sided effusion. 2. Interval placement of right pleural catheter with decrease in size of pleural effusion. 3. Persistent volume loss/fibrotic change at the right lung. 4. Increasing adenopathy lower right neck and right paratracheal region. 5. Cirrhosis with portal hypertension including splenomegaly and ascites. Signer Name: Raudel Romero MD Signed: 01/26/2019 11:32 PM Workstation Name: [id number]
[2019-01-27] MEDS: FUROSEMIDE 40 MG/4 ML INJ IV SCH ×2 (05:59→17:27)
[2019-01-27] MEDS: BUDESONIDE 0.5 MG/2 ML NEBU IH SCH ×2 (07:47→21:39)
[2019-01-27] MEDS: ARFORMOTEROL 15 MCG/2 ML NEBU IH SCH ×2 (07:47→21:39)
[2019-01-27 08:26] LABS: Calcium 8.1 mg/dL (8.4-10.2)
[2019-01-27] MEDS: MULTIVITAMINS,THER W-MINERALS TAB PO SCH (09:19)
[2019-01-27] MEDS: B COMPLEX W/VITAMIN C TAB PO SCH (09:19)
[2019-01-27] MEDS: OMEGA-3 FATTY ACIDS/FISH OIL 1 GRAM CAP PO SCH (09:19)
[2019-01-27] MEDS: ASPIRIN EC 81 MG TAB PO SCH (09:19)
[2019-01-27] MEDS: FOLIC ACID 1 MG TAB PO SCH (09:19)
[2019-01-27] MEDS: LISINOPRIL 10 MG TAB PO SCH (09:20)
[2019-01-27] MEDS: carvediloL 6.25 MG TAB PO SCH (09:20)
--- NOTE | 2019-01-27 10:05 | Progress Note ---
Assessment and Plan - Patient Problems (1) Anemia Current Visit: Yes Status: Acute (2) Hypotension Current Visit: Yes Status: Acute (3) CHF (congestive heart failure) Current Visit: No Status: Acute Qualifiers: Heart failure type: systolic Heart failure chronicity: acute on chronic Qualified Code(s): I50.23 - Acute on chronic systolic (congestive) heart failure (4) Pleural effusion Current Visit: No Status: Acute Subjective Date of service: 01/27/19 Interval history: BREATHING OK,,,,,,,,,,,,,NO C/O Objective Vital Signs Temp Pulse Pulse Pulse Resp Resp BP 01/27/19 09:53 18 01/27/19 09:20 60 34 01/27/19 08:00 97.9 F 60 18 01/27/19 06:00 60 01/27/19 04:17 97.5 F L 01/27/19 04:16 60 18 115/52 01/26/19 23:30 97.8 F 01/26/19 23:29 61 18 116/49 01/26/19 21:48 72 113/54 01/26/19 21:06 72 18 01/26/19 20:51 97.7 F 01/26/19 20:50 60 18 113/54 01/26/19 20:30 60 01/26/19 18:50 82 106/66 01/26/19 17:59 63 132/62 01/26/19 16:31 98.2 F 60 18 127/61 01/26/19 14:31 60 18 01/26/19 14:00 89 01/26/19 12:13 64 14 01/26/19 10:31 64 122/54 01/26/19 10:29 61 122/54 Pulse Ox 01/27/19 09:53 01/27/19 09:20 01/27/19 08:00 97 01/27/19 06:00 01/27/19 04:17 01/27/19 04:16 98 01/26/19 23:30 01/26/19 23:29 96 01/26/19 21:48 01/26/19 21:06 01/26/19 20:51 01/26/19 20:50 91 01/26/19 20:30 01/26/19 18:50 100 01/26/19 17:59 87 01/26/19 16:31 87 01/26/19 14:31 01/26/19 14:00 01/26/19 12:13 96 01/26/19 10:31 01/26/19 10:29 91 - Physical Examination General: No Apparent Distress HEENT: Positive: PERRL Neck: Positive: trachea midline Cardiac: Positive: Reg Rate and Rhythm Lungs: Positive: Decreased Breath Sounds Neuro: Positive: Grossly Intact Extremities: Present: +1 Edema. Absent: edema - Labs and Meds Comprehensive Metabolic Panel 01/27/19 Range/Units 07:08 Sodium 128 L (137-145) mmol/L Potassium 3.9 (3.6-5.0) mmol/L Chloride 94.9 L (98-107) mmol/L Carbon Dioxide 22 (22-30) mmol/L BUN 51 H (9-20) mg/dL Creatinine 1.3 (0.8-1.5) mg/dL Glucose 95 (75-100) mg/dL Calcium 8.1 L (8.4-10.2) mg/dL
--- NOTE | 2019-01-27 10:44 | Progress Note ---
Assessment and Plan Patient with an indwelling right chest tube which does not appear to be draining significantly. At this time, would defer replacement or removal as his left pleural effusion is greater than his right pleural effusion. The patient may ultimately require a left thoracentesis for fluid removal. Patient is clinically volume overloaded with ascites as well. Will order incentive spirometry. Additionally, the patient will need to be at least sitting on the edge of his bed several times a day to allow pulmonary reexpansion. Subjective Date of service: 01/27/19 Principal diagnosis: CHF with volume overload, malfunctioning right chest tube Interval history: Patient with a history of CHF who presented with volume overload. Initial chest x-ray demonstrated bilateral pleural effusions. The patient has an indwelling right chest tube. TPA was administered to the chest tube with only minimal return following aspiration. CT scan was ordered which demonstrates ascites, bilateral pleural effusions left greater than right with chest tube what appears to be appropriate positioning although coursing along the anterior aspect of the pleural surface. Additionally, there is some consolidation in the right lower lobe. Atelectasis versus infectious etiology. At time of examination, the patient is sitting up in bed without oxygen. He is coughing occasionally with productive sputum. Objective - Constitutional Vitals: Vital Signs - 12hr 01/26/19 01/26/19 01/27/19 23:29 23:30 04:16 Temperature 97.8 F Pulse Rate 61 60 Pulse Rate [ Bilateral] Respiratory 18 18 Rate Respiratory Rate [Bilateral ] Blood Pressure 116/49 115/52 O2 Sat by Pulse 96 98 Oximetry 01/27/19 01/27/19 01/27/19 04:17 06:00 07:30 Temperature 97.5 F L Pulse Rate 60 Pulse Rate [ 66 Bilateral] Respiratory Rate Respiratory 18 Rate [Bilateral ] Blood Pressure O2 Sat by Pulse Oximetry 01/27/19 01/27/19 01/27/19 08:00 09:20 09:53 Temperature 97.9 F Pulse Rate 60 60 Pulse Rate [ Bilateral] Respiratory 18 18 Rate Respiratory Rate [Bilateral ] Blood Pressure 91/34 91/34 O2 Sat by Pulse 97 Oximetry 01/27/19 10:13 Temperature Pulse Rate Pulse Rate [ Bilateral] Respiratory Rate Respiratory Rate [Bilateral ] Blood Pressure O2 Sat by Pulse 97 Oximetry General appearance: Present: no acute distress - EENT Eyes: EOM intact ENT: hearing intact - Neck Neck: supple, normal ROM - Respiratory Respiratory effort: normal - Breasts Breasts: deferred Extremities: abnormal (edema) Extremity abnormal: edema - Gastrointestinal General gastrointestinal: Present: deferred Rectal Exam: deferred - Genitourinary Male genitourinary: deferred - Psychiatric Psychiatric: appropriate mood/affect, cooperative - Labs CBC & Chem 7: 01/25/19 16:39 01/27/19 07:08 Labs: Abnormal lab results 01/27/19 Range/Units 07:08 Sodium 128 L (137-145) mmol/L Chloride 94.9 L (98-107) mmol/L BUN 51 H (9-20) mg/dL Calcium 8.1 L (8.4-10.2) mg/dL Medications & Allergies - Medications Allergies/Adverse Reactions: Allergies Penicillins Allergy (Unknown, Verified 09/30/16 06:20) Unknown Home Medications: Home Medications Medication Instructions Recorded Confirmed Last Taken Type Aspirin [Adult Low Dose Aspirin EC] 81 mg PO QDAY 09/30/16 01/25/19 1 Week Ago History ~09/23/16 Carvedilol 6.25 mg PO BID 09/30/16 01/25/19 09/30/16 04:30 History Lovastatin Tab [Mevacor Tab] 40 mg PO HS 09/30/16 01/25/19 09/29/16 History Trandolapril 2 mg PO QDAY 09/30/16 01/25/19 09/30/16 04:30 History B Complex W/Vitamin C [Allbee with 1 each PO DAILY #30 tablet 03/30/18 01/25/19 Unknown Rx C] Folic Acid [Folvite] 1 mg PO QDAY #30 tablet 03/30/18 01/25/19 Unknown Rx Multivitamin Tab W-MINERAL 1 each PO QDAY #30 tablet 03/30/18 01/25/19 Unknown Rx [Multiple Vitamin/Mineral (Theragran M)] [place]-3 Krill Oil 300 mg Sfgl 1 tab PO QDAY #30 03/30/18 01/25/19 Unknown Rx Breo Ellipta 100-25 Mcg INH 3 puff OD DAILY 01/25/19 01/25/19 Unknown History Furosemide [Lasix] 40 mg PO Q12HR 01/25/19 01/25/19 Unknown History Active Medications: Generic Name Dose Route Start Last Admin Trade Name Freq PRN Reason Stop Dose Admin Acetaminophen 650 mg 01/25/19 13:51 Tylenol PO Q4H PRN Pain MILD(1-3)/Fever >100.5/HOWARD Arformoterol Tartrate 15 mcg 01/26/19 12:00 01/27/19 07:47 Brojannet Hyattu IH 15 mcg Q12HRT [facility] Administration Aspirin 81 mg 01/26/19 10:00 01/27/19 09:19 Halfprin Ec PO 81 mg QDAY [facility] Administration Budesonide 0.5 mg 01/26/19 12:00 01/27/19 07:47 Pulmicort IH 0.5 mg Q12HRT [facility] Administration Carvedilol 3.125 mg 01/27/19 22:00 Coreg PO BID [facility] Fish Oil 1,999 mg 01/26/19 10:00 01/27/19 09:19 Fish Oil PO 1,999 mg QDAY [facility] Administration Folic Acid 1 mg 01/26/19 10:00 01/27/19 09:19 Folvite PO 1 mg QDAY [facility] Administration Furosemide 40 mg 01/25/19 18:00 01/27/19 05:59 Lasix IV 40 mg 0600,1800 [facility] Administration Lisinopril 2.5 mg 01/28/19 10:00 Zestril PO QDAY [facility] Multivitamins/Minerals 1 each 01/26/19 10:00 01/27/19 09:19 Theragran-M Tab PO 1 each QDAY [facility] Administration Ondansetron HCl 4 mg 01/25/19 13:51 Zofran IV Q8H PRN Nausea And Vomiting Pravastatin Sodium 80 mg 01/25/19 22:00 01/26/19 21:47 Pravachol PO 80 mg QHS [facility] Administration Sodium Chloride 10 ml 01/25/19 22:00 01/27/19 09:19 Sodium Chloride Flush Syringe 10 Ml IV 10 ml BID [facility] Administration Sodium Chloride 10 ml 01/25/19 13:51 Sodium Chloride Flush Syringe 10 Ml IV PRN PRN LINE FLUSH Vitamin B Complex/Vitamin C 1 each 01/26/19 10:00 01/27/19 09:19 Allbee With C PO 1 each DAILY [facility] Administration
--- NOTE | 2019-01-27 19:54 | Progress Note ---
Assessment and Plan Imp: 1. A/C systolic CHF 2. Pleural effusions 2/2 #1 3. CKD 4. COPD w/o exac. 5. Hyponatremia Rec: 1. Diuresis as tolerated 2. PleurX likely needs to be replaced but favor doing this as an outpatient at [facility] where it was placed; if we can achieve adequate diuresis this should be feasible 3. SCDs 4. PT/OOB 5. Home O2 eval at d/c 6. Long-term prognosis is guarded Plan of care reviewed w/ patient/, they understand/agree Subjective Date of service: 01/27/19 Principal diagnosis: CHF with volume overload, malfunctioning right chest tube Interval history: No events. Awake, alert. SOB and LE edema better. Active Medications Acetaminophen (Tylenol) 650 mg PO Q4H PRN PRN Reason: Pain MILD(1-3)/Fever >100.5/HOWARD Arformoterol Tartrate (Brovana Nebu) 15 mcg IH Q12HRT [facility] Last Admin: 01/27/19 07:47 Dose: 15 mcg Documented by: Aspirin (Halfprin Ec) 81 mg PO QDAY [facility] Last Admin: 01/27/19 09:19 Dose: 81 mg Documented by: Budesonide (Pulmicort) 0.5 mg IH Q12HRT [facility] Last Admin: 01/27/19 07:47 Dose: 0.5 mg Documented by: Carvedilol (Coreg) 3.125 mg PO BID [facility] Fish Oil (Fish Oil) 1,999 mg PO QDAY [facility] Last Admin: 01/27/19 09:19 Dose: 1,999 mg Documented by: Folic Acid (Folvite) 1 mg PO QDAY [facility] Last Admin: 01/27/19 09:19 Dose: 1 mg Documented by: Furosemide (Lasix) 40 mg IV 0600,1800 [facility] Last Admin: 01/27/19 17:27 Dose: 40 mg Documented by: Lisinopril (Zestril) 2.5 mg PO QDAY [facility] Multivitamins/Minerals (Theragran-M Tab) 1 each PO QDAY [facility] Last Admin: 01/27/19 09:19 Dose: 1 each Documented by: Ondansetron HCl (Zofran) 4 mg IV Q8H PRN PRN Reason: Nausea And Vomiting Pravastatin Sodium (Pravachol) 80 mg PO QHS [facility] Last Admin: 01/26/19 21:47 Dose: 80 mg Documented by: Sodium Chloride (Sodium Chloride Flush Syringe 10 Ml) 10 ml IV BID [facility] Last Admin: 01/27/19 09:19 Dose: 10 ml Documented by: Sodium Chloride (Sodium Chloride Flush Syringe 10 Ml) 10 ml IV PRN PRN PRN Reason: LINE FLUSH Vitamin B Complex/Vitamin C (Allbee With C) 1 each PO DAILY [facility] Last Admin: 01/27/19 09:19 Dose: 1 each Documented by: Objective Vital Signs - 12hr 01/27/19 01/27/19 01/27/19 08:00 09:20 09:53 Temperature 97.9 F Pulse Rate 60 60 Respiratory 18 18 Rate Blood Pressure 91/34 91/34 O2 Sat by Pulse 97 Oximetry 01/27/19 01/27/19 01/27/19 10:13 12:00 16:38 Temperature 98.7 F 98.5 F Pulse Rate 61 60 Respiratory 18 18 Rate Blood Pressure 142/50 154/38 O2 Sat by Pulse 97 96 95 Oximetry Constitutional: no acute distress, alert Eyes: non-icteric ENT: oropharynx moist Neck: supple Ascultation: Bilateral: diminished breath sounds (bases) Cardiovascular: regular rate and rhythm (no mrg) Gastrointestinal: normoactive bowel sounds, soft, non-tender, non-distended Integumentary: normal Extremities: no cyanosis, anasarca Neurologic: normal mental status, non-focal exam, pupils equal and round Psychiatric: mood appropriate, affect normal CBC and BMP: 01/25/19 16:39 01/27/19 07:08 ABG, PT/INR, D-dimer: PT/INR, D-dimer PT 16.2 Sec. (12.2-14.9) H 01/25/19 16:39 INR 1.32 (0.87-1.13) H 01/25/19 16:39 Abnormal lab findings: Abnormal Labs 01/25/19 01/25/19 01/25/19 16:39 16:39 16:39 RBC 3.08 L Hgb 9.8 L Hct 29.5 L MCV 96 H RDW 17.5 H Lymph % (Auto) 12.9 L [place] % (Auto) 9.8 H Lymph # 0.9 L Seg Neutrophils % 75.8 H PT 16.2 H INR 1.32 H Sodium 134 L Chloride 96.0 L BUN 51 H Calcium 01/26/19 01/27/19 02:41 07:08 RBC Hgb Hct MCV RDW Lymph % (Auto) [place] % (Auto) Lymph # Seg Neutrophils % PT INR Sodium 133 L 128 L Chloride 96.1 L 94.9 L BUN 49 H 51 H Calcium 7.9 L 8.1 L Chest x-ray: report reviewed, image reviewed CT scan - chest: report reviewed, image reviewed
[2019-01-27] MEDS: PRAVASTATIN 80 MG TAB PO SCH (21:08)
[2019-01-27] MEDS: carvediloL 3.125 MG TAB PO SCH (21:08)
[2019-01-28] MEDS: FUROSEMIDE 40 MG/4 ML INJ IV SCH ×2 (05:17→17:23)
[2019-01-28 08:28] LABS: Calcium 8.1 mg/dL (8.4-10.2)
[2019-01-28] MEDS: ARFORMOTEROL 15 MCG/2 ML NEBU IH SCH ×2 (08:38→20:13)
[2019-01-28] MEDS: BUDESONIDE 0.5 MG/2 ML NEBU IH SCH ×2 (08:38→20:12)
--- NOTE | 2019-01-28 09:13 | Progress Note ---
Assessment and Plan - Patient Problems (1) Anemia Current Visit: Yes Status: Acute (2) Hypotension Current Visit: Yes Status: Acute (3) CHF (congestive heart failure) Current Visit: No Status: Acute Qualifiers: Heart failure type: systolic Heart failure chronicity: acute on chronic Qualified Code(s): I50.23 - Acute on chronic systolic (congestive) heart failure (4) Pleural effusion Current Visit: No Status: Acute Subjective Date of service: 01/28/19 Principal diagnosis: CHF with volume overload, malfunctioning right chest tube Interval history: NO C/O Objective Vital Signs Temp Pulse Pulse Resp Resp BP Pulse Ox 01/28/19 08:56 62 16 01/28/19 08:40 99 01/28/19 08:34 98.0 F 60 18 115/53 99 01/28/19 05:03 98.0 F 58 L 18 106/72 89 01/28/19 04:20 60 01/27/19 23:45 98.0 F 60 18 112/50 93 01/27/19 21:44 95 01/27/19 21:42 57 L 16 01/27/19 21:08 62 128/53 01/27/19 19:26 98.5 F 60 20 128/53 94 01/27/19 19:06 60 01/27/19 16:38 98.5 F 60 18 154/38 95 01/27/19 12:00 98.7 F 61 18 142/50 96 01/27/19 10:13 97 01/27/19 09:53 18 01/27/19 09:20 60 91/34 - Physical Examination General: No Apparent Distress HEENT: Positive: PERRL Neck: Positive: trachea midline Cardiac: Positive: Reg Rate and Rhythm Lungs: Positive: Decreased Breath Sounds Neuro: Positive: Grossly Intact Abdomen: Positive: Unremarkable Extremities: Present: +1 Edema. Absent: edema - Labs and Meds Comprehensive Metabolic Panel 01/28/19 Range/Units 06:52 Sodium 135 L D (137-145) mmol/L Potassium 4.1 (3.6-5.0) mmol/L Chloride 97.9 L (98-107) mmol/L Carbon Dioxide 22 (22-30) mmol/L BUN 49 H (9-20) mg/dL Creatinine 1.3 (0.8-1.5) mg/dL Glucose 96 (75-100) mg/dL Calcium 8.1 L (8.4-10.2) mg/dL
[2019-01-28] MEDS: B COMPLEX W/VITAMIN C TAB PO SCH (09:15)
[2019-01-28] MEDS: carvediloL 3.125 MG TAB PO SCH ×2 (09:15→21:34)
[2019-01-28] MEDS: MULTIVITAMINS,THER W-MINERALS TAB PO SCH (09:15)
[2019-01-28] MEDS: ASPIRIN EC 81 MG TAB PO SCH (09:15)
[2019-01-28] MEDS: OMEGA-3 FATTY ACIDS/FISH OIL 1 GRAM CAP PO SCH (09:16)
[2019-01-28] MEDS: FOLIC ACID 1 MG TAB PO SCH (09:16)
[2019-01-28] MEDS: LISINOPRIL 5 MG TAB PO SCH (09:34)
[2019-01-28] MEDS ORDERED: LISINOPRIL 20 MG TAB PO SCH (10:00)
[2019-01-28] MEDS ORDERED: guaiFENesin DM 200/20 MG ORAL LIQD 10 ML PO PRN (15:37)
--- NOTE | 2019-01-28 15:38 | Progress Note ---
Assessment and Plan Imp: 1. A/C systolic CHF 2. Pleural effusions 2/2 #1 3. CKD 4. COPD w/o exac. 5. Hyponatremia Rec: 1. Diuresis as tolerated 2. PleurX likely needs to be replaced but favor doing this as an outpatient at [facility] where it was placed; if we can achieve adequate diuresis this should be feasible 3. SCDs 4. PT/OOB 5. Home O2 eval at d/c 6. Repeat CXR in AM 7. Robitussin DM prn 8. Long-term prognosis is guarded Plan of care reviewed w/ patient/, they understand/agree Subjective Date of service: 01/28/19 Principal diagnosis: CHF with volume overload, malfunctioning right chest tube Interval history: No events. Awake, alert. SOB and LE edema better. Active Medications Acetaminophen (Tylenol) 650 mg PO Q4H PRN PRN Reason: Pain MILD(1-3)/Fever >100.5/HOWARD Arformoterol Tartrate (Brovana Nebu) 15 mcg IH Q12HRT [facility] Last Admin: 01/28/19 08:38 Dose: 15 mcg Documented by: Aspirin (Halfprin Ec) 81 mg PO QDAY [facility] Last Admin: 01/28/19 09:15 Dose: 81 mg Documented by: Budesonide (Pulmicort) 0.5 mg IH Q12HRT [facility] Last Admin: 01/28/19 08:38 Dose: 0.5 mg Documented by: Carvedilol (Coreg) 3.125 mg PO BID [facility] Last Admin: 01/28/19 09:15 Dose: 3.125 mg Documented by: Fish Oil (Fish Oil) 1,999 mg PO QDAY [facility] Last Admin: 01/28/19 09:16 Dose: 1,999 mg Documented by: Folic Acid (Folvite) 1 mg PO QDAY [facility] Last Admin: 01/28/19 09:16 Dose: 1 mg Documented by: Furosemide (Lasix) 40 mg IV 0600,1800 [facility] Last Admin: 01/28/19 05:17 Dose: 40 mg Documented by: Lisinopril (Zestril) 2.5 mg PO QDAY [facility] Last Admin: 01/28/19 09:34 Dose: 2.5 mg Documented by: Multivitamins/Minerals (Theragran-M Tab) 1 each PO QDAY [facility] Last Admin: 01/28/19 09:15 Dose: 1 each Documented by: Ondansetron HCl (Zofran) 4 mg IV Q8H PRN PRN Reason: Nausea And Vomiting Pravastatin Sodium (Pravachol) 80 mg PO QHS [facility] Last Admin: 01/27/19 21:08 Dose: 80 mg Documented by: Sodium Chloride (Sodium Chloride Flush Syringe 10 Ml) 10 ml IV BID [facility] Last Admin: 01/28/19 09:38 Dose: 10 ml Documented by: Sodium Chloride (Sodium Chloride Flush Syringe 10 Ml) 10 ml IV PRN PRN PRN Reason: LINE FLUSH Last Admin: 01/28/19 05:18 Dose: 10 ml Documented by: Vitamin B Complex/Vitamin C (Allbee With C) 1 each PO DAILY [facility] Last Admin: 01/28/19 09:15 Dose: 1 each Documented by: Objective Vital Signs - 12hr 01/28/19 01/28/19 01/28/19 04:20 05:03 08:34 Temperature 98.0 F 98.0 F Pulse Rate 60 58 L 60 Pulse Rate [ Bilateral] Respiratory 18 18 Rate Respiratory Rate [Bilateral ] Blood Pressure 106/72 115/53 O2 Sat by Pulse 89 99 Oximetry 01/28/19 01/28/19 01/28/19 08:40 08:56 09:15 Temperature Pulse Rate 60 Pulse Rate [ 62 Bilateral] Respiratory Rate Respiratory 16 Rate [Bilateral ] Blood Pressure 115/53 O2 Sat by Pulse 99 Oximetry 01/28/19 01/28/19 01/28/19 09:34 11:10 12:44 Temperature 97.9 F Pulse Rate 60 64 60 Pulse Rate [ Bilateral] Respiratory 18 Rate Respiratory Rate [Bilateral ] Blood Pressure 115/53 102/48 O2 Sat by Pulse 100 Oximetry Constitutional: no acute distress, alert Eyes: non-icteric ENT: oropharynx moist Neck: supple Effort: normal Ascultation: Bilateral: diminished breath sounds (bases) Cardiovascular: regular rate and rhythm (no mrg) Gastrointestinal: normoactive bowel sounds, soft, non-tender, non-distended Integumentary: normal Extremities: no cyanosis, anasarca Neurologic: normal mental status, non-focal exam, pupils equal and round Psychiatric: mood appropriate, affect normal CBC and BMP: 01/25/19 16:39 01/28/19 06:52 ABG, PT/INR, D-dimer: PT/INR, D-dimer PT 16.2 Sec. (12.2-14.9) H 01/25/19 16:39 INR 1.32 (0.87-1.13) H 01/25/19 16:39 Abnormal lab findings: Abnormal Labs 01/25/19 01/25/19 01/25/19 16:39 16:39 16:39 RBC 3.08 L Hgb 9.8 L Hct 29.5 L MCV 96 H RDW 17.5 H Lymph % (Auto) 12.9 L [place] % (Auto) 9.8 H Lymph # 0.9 L Seg Neutrophils % 75.8 H PT 16.2 H INR 1.32 H Sodium 134 L Chloride 96.0 L BUN 51 H Calcium 01/26/19 01/27/19 01/28/19 02:41 07:08 06:52 RBC Hgb Hct MCV RDW Lymph % (Auto) [place] % (Auto) Lymph # Seg Neutrophils % PT INR Sodium 133 L 128 L 135 L D Chloride 96.1 L 94.9 L 97.9 L BUN 49 H 51 H 49 H Calcium 7.9 L 8.1 L 8.1 L Chest x-ray: report reviewed, image reviewed CT scan - chest: report reviewed, image reviewed
[2019-01-28] MEDS: PRAVASTATIN 80 MG TAB PO SCH (21:34)
[2019-01-29] MEDS: FUROSEMIDE 40 MG/4 ML INJ IV SCH ×2 (06:54→18:04)
[2019-01-29] MEDS: ARFORMOTEROL 15 MCG/2 ML NEBU IH SCH ×2 (07:46→21:01)
[2019-01-29] MEDS: BUDESONIDE 0.5 MG/2 ML NEBU IH SCH ×2 (07:46→21:02)
--- NOTE | 2019-01-29 07:53 | XRay Report ---
CHEST - 1 VIEW INDICATION: Pleural effusions COMPARISON: 01/25/2019 FINDINGS: Support devices: Stable support device positioning. Heart: Stable cardiomediastinal silhouette. Lungs/pleura: Moderate right and small left pleural effusions are again noted, largely unchanged. Th ere is also again bibasilar consolidation likely at least in part representing compressive atelectasi s. Additional findings: None. IMPRESSION: Unchanged exam. Signer Name: Vijay Blanton MD Signed: 01/29/2019 7:48 AM Workstation Name: [id number]
[2019-01-29 08:26] LABS: Calcium 7.8 mg/dL (8.4-10.2)
[2019-01-29] MEDS: OMEGA-3 FATTY ACIDS/FISH OIL 1 GRAM CAP PO SCH (09:36)
[2019-01-29] MEDS: ASPIRIN EC 81 MG TAB PO SCH (09:36)
[2019-01-29] MEDS: MULTIVITAMINS,THER W-MINERALS TAB PO SCH (09:37)
[2019-01-29] MEDS: LISINOPRIL 5 MG TAB PO SCH (09:37)
[2019-01-29] MEDS: B COMPLEX W/VITAMIN C TAB PO SCH (09:37)
[2019-01-29] MEDS: carvediloL 3.125 MG TAB PO SCH ×2 (09:38→23:24)
[2019-01-29] MEDS: FOLIC ACID 1 MG TAB PO SCH (09:38)
--- NOTE | 2019-01-29 11:07 | Progress Note ---
Assessment and Plan Decompensated CHF EF 45-50% 01/2019 Recurrent Pleural effusion Presence of right pleurx cather, malfunctioning Hx of Emphysema Presence of PPM Hypertension Anemia, chronic Non-obstructive CAD by [facility] in 2017 Subjective Date of service: 01/29/19 Principal diagnosis: CHF with volume overload, malfunctioning right chest tube Interval history: Patient reports his breathing is improving. Still with coughs. Objective Vital Signs Temp Pulse Pulse Resp Resp BP Pulse Ox 01/29/19 09:38 61 01/29/19 09:37 61 01/29/19 08:02 98.0 F 60 18 111/49 94 01/29/19 07:47 74 18 96 01/29/19 04:16 91 01/29/19 03:59 97.6 F 62 18 105/50 88 01/29/19 01:01 121/55 01/28/19 21:34 62 01/28/19 20:15 59 L 16 01/28/19 19:28 98.5 F 61 17 115/53 96 01/28/19 17:13 98.9 F 58 L 18 120/53 97 01/28/19 12:44 97.9 F 60 18 102/48 100 01/28/19 11:10 64 - Physical Examination General: No Apparent Distress HEENT: Positive: PERRL Neck: Positive: trachea midline Cardiac: Positive: Other (paced) Lungs: Positive: Decreased Breath Sounds Neuro: Positive: Grossly Intact Extremities: Absent: edema - Labs and Meds Comprehensive Metabolic Panel 01/29/19 Range/Units 06:46 Sodium 133 L (137-145) mmol/L Potassium 4.2 (3.6-5.0) mmol/L Chloride 97.3 L (98-107) mmol/L Carbon Dioxide 21 L (22-30) mmol/L BUN 51 H (9-20) mg/dL Creatinine 1.3 (0.8-1.5) mg/dL Glucose 90 (75-100) mg/dL Calcium 7.8 L (8.4-10.2) mg/dL
--- NOTE | 2019-01-29 11:49 | Progress Note ---
Assessment and Plan Continue home COPD regimen Continue diuresis Agree with my partner, if patient can be discharged after adequate diuresis and follow up with IR at [place] to have catheter replaced would be ideal. Subjective Date of service: 01/29/19 Principal diagnosis: CHF with volume overload, malfunctioning right chest tube Interval history: No acute events. Still diuresing. Objective Vital Signs - 12hr 01/29/19 01/29/19 01/29/19 01:01 03:59 04:16 Temperature 97.6 F Pulse Rate 62 Pulse Rate [ Bilateral] Respiratory 18 Rate Respiratory Rate [Bilateral ] Blood Pressure 121/55 105/50 O2 Sat by Pulse 88 91 Oximetry 01/29/19 01/29/19 01/29/19 07:47 08:02 09:37 Temperature 98.0 F Pulse Rate 60 61 Pulse Rate [ 74 Bilateral] Respiratory 18 Rate Respiratory 18 Rate [Bilateral ] Blood Pressure 111/49 O2 Sat by Pulse 96 94 Oximetry 01/29/19 09:38 Temperature Pulse Rate 61 Pulse Rate [ Bilateral] Respiratory Rate Respiratory Rate [Bilateral ] Blood Pressure O2 Sat by Pulse Oximetry Constitutional: no acute distress, alert Eyes: non-icteric ENT: oropharynx moist Neck: supple Effort: normal Ascultation: Right: rales, egophony, Left: clear, Bilateral: diminished breath sounds (bases) Cardiovascular: regular rate and rhythm (no mrg) Gastrointestinal: normoactive bowel sounds, soft, non-tender, non-distended Integumentary: normal Extremities: no cyanosis, anasarca Neurologic: normal mental status, non-focal exam, pupils equal and round Psychiatric: mood appropriate, affect normal CBC and BMP: 01/25/19 16:39 01/29/19 06:46 ABG, PT/INR, D-dimer: PT/INR, D-dimer PT 16.2 Sec. (12.2-14.9) H 01/25/19 16:39 INR 1.32 (0.87-1.13) H 01/25/19 16:39 Abnormal lab findings: Abnormal Labs 01/25/19 01/25/19 01/25/19 16:39 16:39 16:39 RBC 3.08 L Hgb 9.8 L Hct 29.5 L MCV 96 H RDW 17.5 H Lymph % (Auto) 12.9 L [place] % (Auto) 9.8 H Lymph # 0.9 L Seg Neutrophils % 75.8 H PT 16.2 H INR 1.32 H Sodium 134 L Chloride 96.0 L Carbon Dioxide BUN 51 H POC Glucose Calcium 01/26/19 01/27/19 01/28/19 02:41 07:08 06:52 RBC Hgb Hct MCV RDW Lymph % (Auto) [place] % (Auto) Lymph # Seg Neutrophils % PT INR Sodium 133 L 128 L 135 L D Chloride 96.1 L 94.9 L 97.9 L Carbon Dioxide BUN 49 H 51 H 49 H POC Glucose Calcium 7.9 L 8.1 L 8.1 L 01/28/19 01/29/19 20:47 06:46 RBC Hgb Hct MCV RDW Lymph % (Auto) [place] % (Auto) Lymph # Seg Neutrophils % PT INR Sodium 133 L Chloride 97.3 L Carbon Dioxide 21 L BUN 51 H POC Glucose 130 H Calcium 7.8 L
[2019-01-29] MEDS: PRAVASTATIN 80 MG TAB PO SCH (23:24)
[2019-01-30] MEDS: FUROSEMIDE 40 MG/4 ML INJ IV SCH ×2 (06:37→18:28)
[2019-01-30] MEDS: FOLIC ACID 1 MG TAB PO SCH (09:33)
[2019-01-30] MEDS: ASPIRIN EC 81 MG TAB PO SCH (09:33)
[2019-01-30] MEDS: OMEGA-3 FATTY ACIDS/FISH OIL 1 GRAM CAP PO SCH (09:33)
[2019-01-30] MEDS: carvediloL 3.125 MG TAB PO SCH ×2 (09:34→21:49)
[2019-01-30] MEDS: LISINOPRIL 5 MG TAB PO SCH (09:35)
[2019-01-30] MEDS: MULTIVITAMINS,THER W-MINERALS TAB PO SCH (09:36)
[2019-01-30] MEDS: ARFORMOTEROL 15 MCG/2 ML NEBU IH SCH ×2 (10:40→21:22)
[2019-01-30] MEDS: BUDESONIDE 0.5 MG/2 ML NEBU IH SCH ×2 (10:40→21:22)
--- NOTE | 2019-01-30 11:16 | Progress Note ---
Assessment and Plan Decompensated CHF EF 45-50% 01/2019 Recurrent Pleural effusion Presence of right pleurx cather, malfunctioning Pulmonary recommends outpatient follow up with IR at [place] to have catheter replaced Hx of Emphysema Presence of PPM Hypertension Anemia, chronic Non-obstructive CAD by [facility] in 2017 Awaits SNF placement. Discharge planning in the next 24hrs. Continue current management. Subjective Date of service: 01/30/19 Principal diagnosis: CHF with volume overload, malfunctioning right chest tube Interval history: Patient reports his breathing is better. at bedside requests SNF placement. Objective Vital Signs Temp Pulse Pulse Resp Resp BP Pulse Ox 01/30/19 10:00 74 20 96 01/30/19 09:35 65 01/30/19 09:34 61 01/30/19 07:59 97.9 F 60 18 119/46 97 01/30/19 04:39 98.4 F 01/30/19 04:37 57 L 20 107/51 94 01/29/19 23:24 60 01/29/19 22:56 97.5 F L 01/29/19 22:55 60 18 110/45 96 01/29/19 21:06 94 01/29/19 21:04 70 20 01/29/19 20:48 97.5 F L 60 20 105/43 97 01/29/19 18:15 97.5 F L 18 128/48 - Physical Examination General: No Apparent Distress HEENT: Positive: PERRL Neck: Positive: trachea midline Cardiac: Positive: Other (paced) Lungs: Positive: Decreased Breath Sounds Neuro: Positive: Grossly Intact Extremities: Absent: edema
--- NOTE | 2019-01-30 11:32 | Progress Note ---
Assessment and Plan No objection to discharge to nursing facility. Can follow up outpatient with [facility] for malfunctioning pleurx would hold on thora at present and continue diuresis. Subjective Date of service: 01/30/19 Principal diagnosis: CHF with volume overload, malfunctioning right chest tube Interval history: No acute events. Pulm status is stable. Objective Vital Signs - 12hr 01/30/19 01/30/19 01/30/19 04:37 04:39 07:59 Temperature 98.4 F 97.9 F Pulse Rate 57 L 60 Pulse Rate [ Bilateral] Respiratory 20 18 Rate Respiratory Rate [Bilateral ] Blood Pressure 107/51 119/46 O2 Sat by Pulse 94 97 Oximetry 01/30/19 01/30/19 01/30/19 09:34 09:35 10:00 Temperature Pulse Rate 61 65 Pulse Rate [ 74 Bilateral] Respiratory Rate Respiratory 20 Rate [Bilateral ] Blood Pressure O2 Sat by Pulse 96 Oximetry 01/30/19 11:12 Temperature 98.2 F Pulse Rate 60 Pulse Rate [ Bilateral] Respiratory 18 Rate Respiratory Rate [Bilateral ] Blood Pressure 112/45 O2 Sat by Pulse 98 Oximetry Constitutional: no acute distress, alert Eyes: non-icteric ENT: oropharynx moist Neck: supple Effort: normal Ascultation: Right: rales, egophony, Left: clear, Bilateral: diminished breath sounds (bases) Cardiovascular: regular rate and rhythm (no mrg) Gastrointestinal: normoactive bowel sounds, soft, non-tender, non-distended Integumentary: normal Extremities: no cyanosis, anasarca Neurologic: normal mental status, non-focal exam, pupils equal and round Psychiatric: mood appropriate, affect normal CBC and BMP: 01/25/19 16:39 01/29/19 06:46 ABG, PT/INR, D-dimer: PT/INR, D-dimer PT 16.2 Sec. (12.2-14.9) H 01/25/19 16:39 INR 1.32 (0.87-1.13) H 01/25/19 16:39 Abnormal lab findings: Abnormal Labs 01/25/19 01/25/19 01/25/19 16:39 16:39 16:39 RBC 3.08 L Hgb 9.8 L Hct 29.5 L MCV 96 H RDW 17.5 H Lymph % (Auto) 12.9 L [place] % (Auto) 9.8 H Lymph # 0.9 L Seg Neutrophils % 75.8 H PT 16.2 H INR 1.32 H Sodium 134 L Chloride 96.0 L Carbon Dioxide BUN 51 H POC Glucose Calcium 01/26/19 01/27/19 01/28/19 02:41 07:08 06:52 RBC Hgb Hct MCV RDW Lymph % (Auto) [place] % (Auto) Lymph # Seg Neutrophils % PT INR Sodium 133 L 128 L 135 L D Chloride 96.1 L 94.9 L 97.9 L Carbon Dioxide BUN 49 H 51 H 49 H POC Glucose Calcium 7.9 L 8.1 L 8.1 L 01/28/19 01/29/19 20:47 06:46 RBC Hgb Hct MCV RDW Lymph % (Auto) [place] % (Auto) Lymph # Seg Neutrophils % PT INR Sodium 133 L Chloride 97.3 L Carbon Dioxide 21 L BUN 51 H POC Glucose 130 H Calcium 7.8 L
[2019-01-30] MEDS: B COMPLEX W/VITAMIN C TAB PO SCH (18:29)
[2019-01-30] MEDS: PRAVASTATIN 80 MG TAB PO SCH (21:49)
[2019-01-31] MEDS: FUROSEMIDE 40 MG/4 ML INJ IV SCH ×2 (06:13→19:48)
[2019-01-31] MEDS: BUDESONIDE 0.5 MG/2 ML NEBU IH SCH ×2 (08:57→19:33)
[2019-01-31] MEDS: ARFORMOTEROL 15 MCG/2 ML NEBU IH SCH ×2 (08:57→19:33)
[2019-01-31] MEDS: OMEGA-3 FATTY ACIDS/FISH OIL 1 GRAM CAP PO SCH (09:26)
[2019-01-31] MEDS: MULTIVITAMINS,THER W-MINERALS TAB PO SCH (09:26)
[2019-01-31] MEDS: ASPIRIN EC 81 MG TAB PO SCH (09:26)
[2019-01-31] MEDS: LISINOPRIL 5 MG TAB PO SCH (09:29)
[2019-01-31] MEDS: FOLIC ACID 1 MG TAB PO SCH (09:32)
[2019-01-31] MEDS: carvediloL 3.125 MG TAB PO SCH ×2 (09:32→22:48)
--- NOTE | 2019-01-31 11:31 | Progress Note ---
<COOPER SALGADO - Last Filed: 01/31/19 11:28> Assessment and Plan Decompensated CHF EF 45-50% 01/2019 Recurrent Pleural effusion Presence of right pleurx cather, malfunctioning Pulmonary recommends outpatient follow up with IR at [place] to have catheter replaced Hx of Emphysema Presence of PPM Hypertension Anemia, chronic Non-obstructive CAD by [facility] in 2017 For planned Pleurx catheter removal tomorrow. Continue current management. Subjective Date of service: 01/31/19 Principal diagnosis: CHF with volume overload, malfunctioning right chest tube Interval history: After discussion with pulmonary, patient will have his Pleurx catheter removed tomorrow and will be discharged to SNF afterwards. Objective Vital Signs Temp Pulse Pulse Resp Resp BP Pulse Ox 01/31/19 09:32 61 01/31/19 09:29 62 01/31/19 09:00 96 01/31/19 08:58 66 20 01/31/19 08:15 98.0 F 60 18 114/50 97 01/31/19 03:44 61 01/31/19 02:54 97.3 F L 60 18 100/42 90 01/30/19 22:41 97.3 F L 61 18 113/47 91 01/30/19 21:49 65 112/47 01/30/19 21:24 98 01/30/19 21:23 62 20 01/30/19 19:47 60 01/30/19 19:26 98.1 F 60 20 112/47 97 01/30/19 16:16 98.4 F 60 18 111/47 98 - Physical Examination General: No Apparent Distress HEENT: Positive: PERRL Neck: Positive: trachea midline Cardiac: Positive: Reg Rate and Rhythm Lungs: Positive: Decreased Breath Sounds Neuro: Positive: Grossly Intact Abdomen: Positive: Unremarkable Extremities: Absent: edema <SHELLEY SHER - Last Filed: 02/03/19 10:45> Assessment and Plan I seen and evaluated the patient and agree with the assessment and plan. Patient presented with decompensated congestive heart failure with ejection fraction 45-50%, recurrent pleural effusion, presence of right Pleurx catheter which was malfunctioning, history of emphysema, history of presence of permanent pacemaker, and hypertension. At this time recommend continue goal-directed medical therapy for treatment of mild systolic cardiomyopathy. Objective Vital Signs Temp Pulse Resp BP Pulse Ox 02/02/19 11:57 98.4 F 60 18 112/48 100
--- NOTE | 2019-01-31 12:34 | Progress Note ---
Assessment and Plan Spoke with IR here at [facility] who has agree to remove catheter patient can go to rehab services. This will happen tomorrow. Dr. Laguerre has already placed the orders. Subjective Date of service: 01/31/19 Principal diagnosis: CHF with volume overload, malfunctioning right chest tube Interval history: No acute events. Rehab will not take patient with pleurx catheter. Objective Vital Signs - 12hr 01/31/19 01/31/19 01/31/19 02:54 03:44 08:15 Temperature 97.3 F L 98.0 F Pulse Rate 60 61 60 Pulse Rate [ Bilateral] Respiratory 18 18 Rate Respiratory Rate [Bilateral ] Blood Pressure 100/42 114/50 O2 Sat by Pulse 90 97 Oximetry 01/31/19 01/31/19 01/31/19 08:58 09:00 09:29 Temperature Pulse Rate 62 Pulse Rate [ 66 Bilateral] Respiratory Rate Respiratory 20 Rate [Bilateral ] Blood Pressure O2 Sat by Pulse 96 Oximetry 01/31/19 09:32 Temperature Pulse Rate 61 Pulse Rate [ Bilateral] Respiratory Rate Respiratory Rate [Bilateral ] Blood Pressure O2 Sat by Pulse Oximetry Constitutional: no acute distress, alert Eyes: non-icteric ENT: oropharynx moist Neck: supple Effort: normal Ascultation: Right: rales, egophony, Left: clear, Bilateral: diminished breath sounds (bases) Cardiovascular: regular rate and rhythm (no mrg) Gastrointestinal: normoactive bowel sounds, soft, non-tender, non-distended Integumentary: normal Extremities: no cyanosis, anasarca Neurologic: normal mental status, non-focal exam, pupils equal and round Psychiatric: mood appropriate, affect normal CBC and BMP: 01/25/19 16:39 01/29/19 06:46 ABG, PT/INR, D-dimer: PT/INR, D-dimer PT 16.2 Sec. (12.2-14.9) H 01/25/19 16:39 INR 1.32 (0.87-1.13) H 01/25/19 16:39 Abnormal lab findings: Abnormal Labs 01/25/19 01/25/19 01/25/19 16:39 16:39 16:39 RBC 3.08 L Hgb 9.8 L Hct 29.5 L MCV 96 H RDW 17.5 H Lymph % (Auto) 12.9 L [place] % (Auto) 9.8 H Lymph # 0.9 L Seg Neutrophils % 75.8 H PT 16.2 H INR 1.32 H Sodium 134 L Chloride 96.0 L Carbon Dioxide BUN 51 H POC Glucose Calcium 01/26/19 01/27/19 01/28/19 02:41 07:08 06:52 RBC Hgb Hct MCV RDW Lymph % (Auto) [place] % (Auto) Lymph # Seg Neutrophils % PT INR Sodium 133 L 128 L 135 L D Chloride 96.1 L 94.9 L 97.9 L Carbon Dioxide BUN 49 H 51 H 49 H POC Glucose Calcium 7.9 L 8.1 L 8.1 L 01/28/19 01/29/19 20:47 06:46 RBC Hgb Hct MCV RDW Lymph % (Auto) [place] % (Auto) Lymph # Seg Neutrophils % PT INR Sodium 133 L Chloride 97.3 L Carbon Dioxide 21 L BUN 51 H POC Glucose 130 H Calcium 7.8 L
[2019-01-31] MEDS: B COMPLEX W/VITAMIN C TAB PO SCH (19:47)
[2019-01-31] MEDS: PRAVASTATIN 80 MG TAB PO SCH (22:48)
[2019-02-01] MEDS: FUROSEMIDE 40 MG/4 ML INJ IV SCH ×2 (05:45→17:43)
[2019-02-01 06:32] LABS: Calcium 7.9 mg/dL (8.4-10.2)
[2019-02-01] MEDS: ARFORMOTEROL 15 MCG/2 ML NEBU IH SCH ×2 (08:23→19:59)
[2019-02-01] MEDS: BUDESONIDE 0.5 MG/2 ML NEBU IH SCH ×2 (08:23→19:59)
[2019-02-01] MEDS ORDERED: SODIUM CHLORIDE IRRI 500 ML 500 ML IR ONE (09:22)
[2019-02-01] MEDS ORDERED: LIDOCAINE (2%) 20 MG/1 ML VIAL 20 ML MDV INFILTRATI ONE (09:22)
--- NOTE | 2019-02-01 10:14 | Progress Note ---
Assessment and Plan Decompensated CHF EF 45-50% 01/2019 Recurrent Pleural effusion Presence of right pleurx cather, malfunctioning Pulmonary recommends outpatient follow up with IR at [place] to have catheter replaced Hx of Emphysema Presence of PPM Hypertension Anemia, chronic Non-obstructive CAD by [facility] in 2017 For planned Pleurx catheter removal today. Continue current management. Discharge planning to SNF is in process. Subjective Date of service: 02/01/19 Principal diagnosis: CHF with volume overload, malfunctioning right chest tube Interval history: For Pleurx catheter removal today. Objective Vital Signs Temp Pulse Pulse Pulse Resp Resp BP 02/01/19 08:25 02/01/19 08:24 60 16 02/01/19 08:23 18 02/01/19 04:22 60 02/01/19 04:08 98.0 F 61 18 103/47 02/01/19 00:06 98.0 F 60 20 97/41 01/31/19 22:48 60 113/47 01/31/19 20:18 98.0 F 60 20 113/47 01/31/19 20:17 60 01/31/19 19:37 01/31/19 19:36 60 16 01/31/19 16:32 98.4 F 60 18 117/48 01/31/19 11:00 60 18 Pulse Ox 02/01/19 08:25 96 02/01/19 08:24 02/01/19 08:23 98 02/01/19 04:22 02/01/19 04:08 91 02/01/19 00:06 96 01/31/19 22:48 01/31/19 20:18 97 01/31/19 20:17 01/31/19 19:37 98 01/31/19 19:36 01/31/19 16:32 97 01/31/19 11:00 - Physical Examination General: No Apparent Distress HEENT: Positive: PERRL Neck: Positive: trachea midline Cardiac: Positive: Reg Rate and Rhythm Lungs: Positive: Decreased Breath Sounds Neuro: Positive: Grossly Intact Extremities: Absent: edema - Labs and Meds Comprehensive Metabolic Panel 02/01/19 Range/Units 05:24 Sodium 135 L (137-145) mmol/L Potassium 4.0 (3.6-5.0) mmol/L Chloride 98.9 (98-107) mmol/L Carbon Dioxide 23 (22-30) mmol/L BUN 61 H (9-20) mg/dL Creatinine 1.4 (0.8-1.5) mg/dL Glucose 93 (75-100) mg/dL Calcium 7.9 L (8.4-10.2) mg/dL
[2019-02-01] MEDS ORDERED: MIDAZOLAM 2 MG/2 ML INJ ONE (10:16)
[2019-02-01] MEDS ORDERED: fentaNYL 100 MCG/2 ML INJ ONE (10:16)
--- NOTE | 2019-02-01 10:39 | Operative Report ---
Operative Report Operative Report: Exam: Thoracentesis, removal of tunneled chest tube Clinical indication: Patient with a history of CHF and recurrent pleural effusions, chest tube no longer needed Date: 02/01/2019 Procedure: Following an expiration of the risks, benefits and alternatives; written informed consent was obtained. The patient was brought to the fluoroscopic suite and placed in supine position on the examination table. Initial fluoroscopic images demonstrated appropriate positioning of the patient's previously placed right Pleurx catheter. A small amount of pleural fluid is identified. The patient's right chest wall and indwelling catheter were prepped and draped in the usual sterile fashion. 1% lidocaine was used for anesthesia. A total of 250 mL's of yellow serous fluid was aspirated to the catheter prior to attempts to remove the catheter. The catheter was dissected free using a combination of sharp and blunt dissection. Under fluoroscopy, the catheter was then removed intact. Hemostasis was achieved using manual compression. A sterile compression dressing was then applied. Patient tolerated the procedure well. There were no immediate post procedure compensations. A minimal amount of sedation was utilized secondary to patient's decreased mental status. Continuous cardiopulmonary monitoring was utilized. Impression: 1) Thoracentesis with 250 mL's of yellow serous fluid aspirated. 2) Removal of right chest wall tunneled chest tube.
[2019-02-01] MEDS: OMEGA-3 FATTY ACIDS/FISH OIL 1 GRAM CAP PO SCH (11:47)
[2019-02-01] MEDS: MULTIVITAMINS,THER W-MINERALS TAB PO SCH (11:47)
[2019-02-01] MEDS: B COMPLEX W/VITAMIN C TAB PO SCH (11:47)
[2019-02-01] MEDS: FOLIC ACID 1 MG TAB PO SCH (11:47)
[2019-02-01] MEDS: LISINOPRIL 5 MG TAB PO SCH (11:47)
[2019-02-01] MEDS: ASPIRIN EC 81 MG TAB PO SCH (11:47)
[2019-02-01] MEDS: carvediloL 3.125 MG TAB PO SCH ×2 (11:48→21:42)
--- NOTE | 2019-02-01 12:04 | Progress Note ---
Assessment and Plan Catheter now out Pulm status is stable, unchanged From a pulmonary standpoint, no objection to discharge. Follow up with [facility] as an outpatient. Subjective Date of service: 02/01/19 Principal diagnosis: CHF with volume overload, malfunctioning right chest tube Interval history: Appreciate vascular assistance this am. Catheter removed along with 250cc of yellow fluid, likely transudative in nature. Objective Vital Signs - 12hr 02/01/19 02/01/19 02/01/19 00:06 04:08 04:22 Temperature 98.0 F 98.0 F Pulse Rate 60 61 60 Pulse Rate [ Bilateral] Respiratory 20 18 Rate Respiratory Rate [Bilateral ] Blood Pressure 97/41 103/47 O2 Sat by Pulse 96 91 Oximetry 02/01/19 02/01/19 02/01/19 08:05 08:23 08:24 Temperature 98.3 F Pulse Rate 64 Pulse Rate [ 60 Bilateral] Respiratory 18 18 Rate Respiratory 16 Rate [Bilateral ] Blood Pressure 120/54 O2 Sat by Pulse 97 98 Oximetry 02/01/19 02/01/19 02/01/19 08:25 11:05 11:15 Temperature 97.8 F Pulse Rate 63 62 Pulse Rate [ Bilateral] Respiratory 16 18 Rate Respiratory Rate [Bilateral ] Blood Pressure 109/49 116/50 O2 Sat by Pulse 96 100 99 Oximetry 02/01/19 02/01/19 02/01/19 11:30 11:47 11:48 Temperature Pulse Rate 63 61 61 Pulse Rate [ Bilateral] Respiratory 16 Rate Respiratory Rate [Bilateral ] Blood Pressure 116/56 117/51 117/51 O2 Sat by Pulse 98 Oximetry 02/01/19 11:53 Temperature 98.4 F Pulse Rate Pulse Rate [ Bilateral] Respiratory 18 Rate Respiratory Rate [Bilateral ] Blood Pressure 117/51 O2 Sat by Pulse Oximetry Constitutional: no acute distress, alert Eyes: non-icteric ENT: oropharynx moist Neck: supple Effort: normal Ascultation: Right: rales, egophony, Left: clear, Bilateral: diminished breath sounds (bases) Cardiovascular: regular rate and rhythm (no mrg) Gastrointestinal: normoactive bowel sounds, soft, non-tender, non-distended Integumentary: normal Extremities: no cyanosis, anasarca Neurologic: normal mental status, non-focal exam, pupils equal and round Psychiatric: mood appropriate, affect normal CBC and BMP: 01/25/19 16:39 02/01/19 05:24 ABG, PT/INR, D-dimer: PT/INR, D-dimer PT 16.2 Sec. (12.2-14.9) H 01/25/19 16:39 INR 1.32 (0.87-1.13) H 01/25/19 16:39 Abnormal lab findings: Abnormal Labs 01/25/19 01/25/19 01/25/19 16:39 16:39 16:39 RBC 3.08 L Hgb 9.8 L Hct 29.5 L MCV 96 H RDW 17.5 H Lymph % (Auto) 12.9 L [place] % (Auto) 9.8 H Lymph # 0.9 L Seg Neutrophils % 75.8 H PT 16.2 H INR 1.32 H Sodium 134 L Chloride 96.0 L Carbon Dioxide BUN 51 H POC Glucose Calcium 01/26/19 01/27/19 01/28/19 02:41 07:08 06:52 RBC Hgb Hct MCV RDW Lymph % (Auto) [place] % (Auto) Lymph # Seg Neutrophils % PT INR Sodium 133 L 128 L 135 L D Chloride 96.1 L 94.9 L 97.9 L Carbon Dioxide BUN 49 H 51 H 49 H POC Glucose Calcium 7.9 L 8.1 L 8.1 L 01/28/19 01/29/19 02/01/19 20:47 06:46 05:24 RBC Hgb Hct MCV RDW Lymph % (Auto) [place] % (Auto) Lymph # Seg Neutrophils % PT INR Sodium 133 L 135 L Chloride 97.3 L Carbon Dioxide 21 L BUN 51 H 61 H POC Glucose 130 H Calcium 7.8 L 7.9 L
--- NOTE | 2019-02-01 13:08 | XRay Report ---
CHEST 1 VIEW 02/01/2019 12:15 PM INDICATION / CLINICAL INFORMATION: chest tube removal. COMPARISON: Chest x-ray on 01/29/2019. FINDINGS: SUPPORT DEVICES: The right chest tube has been removed. HEART / MEDIASTINUM: Stable. LUNGS / PLEURA: Stable small bilateral pleural effusions. No pneumothorax. ADDITIONAL FINDINGS: No significant additional findings. IMPRESSION: 1. No pneumothorax following chest tube removal. Stable small bilateral pleural effusions. Signer Name: Pierre Maharaj MD Signed: 02/01/2019 1:04 PM Workstation Name: [id number]
[2019-02-01] MEDS: PRAVASTATIN 80 MG TAB PO SCH (21:41)
[2019-02-02] MEDS: FUROSEMIDE 40 MG/4 ML INJ IV SCH (05:06)
[2019-02-02] MEDS: ARFORMOTEROL 15 MCG/2 ML NEBU IH SCH (07:51)
[2019-02-02] MEDS: BUDESONIDE 0.5 MG/2 ML NEBU IH SCH (07:51)
[2019-02-02] MEDS: carvediloL 3.125 MG TAB PO SCH (09:35)
[2019-02-02] MEDS: MULTIVITAMINS,THER W-MINERALS TAB PO SCH (09:35)
[2019-02-02] MEDS: ASPIRIN EC 81 MG TAB PO SCH (09:35)
[2019-02-02] MEDS: FOLIC ACID 1 MG TAB PO SCH (09:35)
[2019-02-02] MEDS: OMEGA-3 FATTY ACIDS/FISH OIL 1 GRAM CAP PO SCH (09:35)
[2019-02-02] MEDS: LISINOPRIL 5 MG TAB PO SCH (09:36)
[2019-02-02] MEDS: B COMPLEX W/VITAMIN C TAB PO SCH (09:38)
--- NOTE | 2019-02-02 10:38 | Discharge Summary ---
Providers - Providers Date of Admission: 01/25/19 13:27 Date of discharge: 02/02/19 Attending physician: DARYN RFEEMAN 01/25/19 15:33 Consult to Physician [CONS] Routine Comment: Consulting Provider: TIGRE SINGH Physician Instructions: Reason For Exam: Pleural effusion 01/26/19 13:38 Occupational Therapy Evaluate and Treat [CONS] Routine Comment: Reason For Exam: generalized weakness Physical Therapy Evaluation and Treat [CONS] Routine Comment: Reason For Exam: generalized weakness Primary care physician: LELE KIDD Hospitalization Condition: Good Hospital course: This is an 83-year old male who was admitted from the outpatient setting with decompensated CHF and persistent pleural effusion with a nonfunctioning right chest pleurx catheter. The persistent right pleural effusion and malfunctioning pleurx catheter has been fully evaluated by pulmonary medicine. After adequate diuresis, the patient underwent a thoracentesis with removal of right chest pleurx catheter. Today, the patient appear well and reports his breathing is better. He will be discharge to a [facility] facility with recommendations to follow up with his primary employment representative, Dr Andrews, within 3-5 days. Disposition: DC/[place]-[facility] CERT Core Measure Documentation - Palliative Care Palliative Care/ Comfort Measures: Not Applicable - Core Measures Any of the following diagnoses?: heart failure - Heart Failure Discharge Requirements RANDY/ARB for LVSD if EF <40%: Yes Beta ana at discharge: Yes Exam - Constitutional Vitals: Temp Pulse Resp BP Pulse Ox 98.2 F 61 18 119/50 95 02/02/19 07:41 02/02/19 09:36 02/02/19 07:52 02/02/19 09:36 02/02/19 07:53 General appearance: Present: no acute distress - EENT Eyes: Present: PERRL ENT: hearing intact - Neck Neck: Present: normal ROM - Respiratory Respiratory effort: normal - Cardiovascular Rhythm: other (paced) - Extremities Extremities: No edema - Abdominal General gastrointestinal: Present: soft Male genitourinary: Present: deferred - Rectal Rectal Exam: deferred - Integumentary Integumentary: Present: clear, warm, dry - Musculoskeletal Musculoskeletal: generalized weakness - Psychiatric Psychiatric: appropriate mood/affect Plan Activity: advance as tolerated Diet: low fat, low cholesterol, low salt Follow up with: PRIMARY CARE, [Referring] - 7 Days KATHLEEN ANDREWS MD [Staff Physician] - 7 Days DARYN FREEMAN MD [Staff Physician] - 7 Days Prescriptions: Lisinopril [Zestril TAB] 2.5 mg PO QDAY #30 tablet
--- NOTE | 2019-02-02 11:11 | Progress Note ---
Assessment and Plan Catheter now out Pulm status is stable, unchanged From a pulmonary standpoint, no objection to discharge. Follow up with [facility] as an outpatient. Subjective Date of service: 02/02/19 Principal diagnosis: CHF with volume overload, malfunctioning right chest tube Interval history: Patient being discharge to facility today. Stable. Saw in [place] but did not get a chance to speak to her. Objective Vital Signs - 12hr 02/01/19 02/02/19 02/02/19 23:49 04:09 05:27 Temperature 97.9 F 98.2 F Pulse Rate 60 60 60 Pulse Rate [ Bilateral] Respiratory 18 18 Rate Respiratory Rate [Bilateral ] Blood Pressure 104/46 92/45 O2 Sat by Pulse 98 94 Oximetry 02/02/19 02/02/19 02/02/19 07:41 07:52 07:53 Temperature 98.2 F Pulse Rate 63 Pulse Rate [ 89 Bilateral] Respiratory 18 Rate Respiratory 18 Rate [Bilateral ] Blood Pressure 119/50 O2 Sat by Pulse 99 95 Oximetry 02/02/19 02/02/19 09:35 09:36 Temperature Pulse Rate 61 61 Pulse Rate [ Bilateral] Respiratory Rate Respiratory Rate [Bilateral ] Blood Pressure 119/50 119/50 O2 Sat by Pulse Oximetry Constitutional: no acute distress, alert Eyes: non-icteric ENT: oropharynx moist Neck: supple Effort: normal Ascultation: Right: rales, egophony, Left: clear, Bilateral: diminished breath sounds (bases) Cardiovascular: regular rate and rhythm (no mrg) Gastrointestinal: normoactive bowel sounds, soft, non-tender, non-distended Integumentary: normal Extremities: no cyanosis, anasarca Neurologic: normal mental status, non-focal exam, pupils equal and round Psychiatric: mood appropriate, affect normal CBC and BMP: 01/25/19 16:39 02/01/19 05:24 ABG, PT/INR, D-dimer: PT/INR, D-dimer PT 16.2 Sec. (12.2-14.9) H 01/25/19 16:39 INR 1.32 (0.87-1.13) H 01/25/19 16:39 Abnormal lab findings: Abnormal Labs 01/25/19 01/25/19 01/25/19 16:39 16:39 16:39 RBC 3.08 L Hgb 9.8 L Hct 29.5 L MCV 96 H RDW 17.5 H Lymph % (Auto) 12.9 L [place] % (Auto) 9.8 H Lymph # 0.9 L Seg Neutrophils % 75.8 H PT 16.2 H INR 1.32 H Sodium 134 L Chloride 96.0 L Carbon Dioxide BUN 51 H POC Glucose Calcium 01/26/19 01/27/19 01/28/19 02:41 07:08 06:52 RBC Hgb Hct MCV RDW Lymph % (Auto) [place] % (Auto) Lymph # Seg Neutrophils % PT INR Sodium 133 L 128 L 135 L D Chloride 96.1 L 94.9 L 97.9 L Carbon Dioxide BUN 49 H 51 H 49 H POC Glucose Calcium 7.9 L 8.1 L 8.1 L 01/28/19 01/29/19 02/01/19 20:47 06:46 05:24 RBC Hgb Hct MCV RDW Lymph % (Auto) [place] % (Auto) Lymph # Seg Neutrophils % PT INR Sodium 133 L 135 L Chloride 97.3 L Carbon Dioxide 21 L BUN 51 H 61 H POC Glucose 130 H Calcium 7.8 L 7.9 L
[2019-02-02 12:05] VITALS: BP 112/48
== END 2019-02-02 15:45 | DRG 314 ==
LOC: UNDOADMIN 12:13 → 4A 12:13
PROVIDERS: ADMIT Internal Medicine Cardiovascular Disease; ATTEND Internal Medicine Cardiovascular Disease
PROC: 0W993ZZ Drainage of Right Pleural Cavity, Percutaneous Approach (ICD-10-PCS; principal; 2019-01-26)
PROC: 3E0L3GC Introduction of Other Therapeutic Substance into Pleural Cavity, Percutaneous Approach (ICD-10-PCS; 2019-01-26)
PROC: 0W993ZZ Drainage of Right Pleural Cavity, Percutaneous Approach (ICD-10-PCS; 2019-02-01)
PROC: 0WP900Z Removal of Drainage Device from Right Pleural Cavity, Open Approach (ICD-10-PCS; 2019-02-01)
DX: T82.9XXA Unspecified complication of cardiac and vascular prosthetic device, implant and graft, initial encounter (principal); I50.23 Acute on chronic systolic (congestive) heart failure; E87.1 Hypo-osmolality and hyponatremia; J90 Pleural effusion, not elsewhere classified; I13.0 Hypertensive heart and chronic kidney disease with heart failure and stage 1 through stage 4 chronic kidney disease, or unspecified chronic kidney disease; D64.9 Anemia, unspecified; I25.10 Atherosclerotic heart disease of native coronary artery without angina pectoris; Y83.8 Other surgical procedures as the cause of abnormal reaction of the patient, or of later complication, without mention of misadventure at the time of the procedure; N18.9 Chronic kidney disease, unspecified; J44.9 Chronic obstructive pulmonary disease, unspecified; I95.9 Hypotension, unspecified; Z88.0 Allergy status to penicillin; Z79.82 Long term (current) use of aspirin; Z79.899 Other long term (current) drug therapy; Z95.0 Presence of cardiac pacemaker; Z82.49 Family history of ischemic heart disease and other diseases of the circulatory system; Y92.89 Other specified places as the place of occurrence of the external cause
CPT/HCPCS: 32552; 36415; 71045; 71260; 80048; 82962; 85025; 85610; 94640; 94760; G0378; A9270-GY; J1940; J2250; J2997; J3010; Q9967